=== PATIENT | male | born 1975 | race Caucasian/White ===

== ENCOUNTER 2023-12-27 10:27 | Observation (INO) | payer OTHER ==
--- NOTE | 2023-12-27 10:29 | ERPHSYRPT ---
- History of Present Illness Time Seen by Provider: 12/27/23 10:29 Source: patient, family Exam Limitations: clinical condition (Lethargic) Physician History: This is an obese 48-year-old white male patient who is brought in by private vehicle by the patient's mother who provided some additional, independent history. Patient was brought in because of concern of the possibility of a stroke. Patient's mother stated that her son was last normal prior to 1 AM this morning. At around 7 AM she heard some noise in his room but did not proceed to investigate or evaluate her son. Just prior to arrival, the patient's mother was concerned because he was having trouble communicating as well as standing and walking on his own. The patient arrives to the emergency department with similar symptoms. Patient was sent directly to the CT scanning suite where a stat CT scan of the head was performed. Patient was brought back to room to the emergency department where he is able to follow commands. He shook his head no when asked if he consumed alcohol last evening and late this morning and he stated no. When asked if he took some illicit drugs he nodded yes. He also nodded yes when he was asked whether or not he uses methamphetamines and narcotics. He is able to move all his extremities and follow commands. He is lethargic but arousable Severity: moderate Associated Symptoms: weakness (Lethargic) Allergies/Adverse Reactions: Penicillins Allergy (Unknown, Verified 12/27/23 11:15) codeine Allergy (Verified 12/27/23 11:15) Hx Tetanus, Diphtheria Vaccination/Date Given: Yes Hx Influenza Vaccination/Date Given: No Hx Pneumococcal Vaccination/Date Given: No Travel Risk - International Travel Have you traveled outside of the country in past 3 weeks: No - Emerging Infectious Disease Are you exhibiting symptoms associated with any current EIDs: No - Review of Systems Constitutional: Lethargy (But rousable), Weakness Eyes: No Symptoms Ears, Nose, & Throat: No Symptoms Respiratory: No Symptoms Cardiac: No Symptoms Abdominal/Gastrointestinal: No Symptoms Genitourinary Symptoms: No Symptoms Musculoskeletal: No Symptoms Neurological: Lethargy, No Other (No focal neurologic abnormalities) Psychological: Drug Abuse Endocrine: No Symptoms Hematologic/Lymphatic: No Symptoms Immunological/Allergic: No Symptoms All Other Systems: Reviewed and Negative - Past Medical History Pertinent Past Medical History: No - Past Surgical History Past Surgical History: No - Social History Smoking Status: Current every day smoker How long have you smoked: 10 Exposure to second hand smoke: Yes Drug Use: none Patient Lives Alone: No - Nursing Vital Signs Nursing Vital Signs: Initial Vital Signs Pulse Rate 71 12/27/23 10:54 Respiratory Rate 24 12/27/23 10:54 O2 Sat by Pulse Oximetry 97 12/27/23 10:54 Pain Scale Pain Intensity 0 - Physical Exam General Appearance: lethargy, obese Eye Exam: other (Pupils are symmetric but seem pinpoint to my examination) Ears, Nose, Throat Exam: dry mucous membranes Neck Exam: normal inspection, non-tender, supple, full range of motion Respiratory Exam: normal breath sounds, lungs clear, No chest tenderness, No respiratory distress Cardiovascular Exam: regular rate/rhythm, normal heart sounds, normal peripheral pulses Gastrointestinal/Abdomen Exam: soft, normal bowel sounds, No tenderness Rectal Exam: not done Back Exam: normal inspection, normal range of motion, No CVA tenderness, No vertebral tenderness Extremity Exam: normal inspection, normal range of motion, pelvis stable Neurologic Exam: confusion, intoxicated appearance, motor weakness (Generalized and symmetric) Skin Exam: normal color, warm, dry Lymphatic Exam: No adenopathy SpO2 Interpretation: normal O2 Delivery: Room Air - Course Nursing assessment & vital signs reviewed: Yes EKG Interpreted by Me: RATE (71), Sinus Rhythm, NORMAL AXIS, NORMAL INTERVALS, NORMAL QRS, NORMAL ST-T, Other (No acute ischemia on today's twelve-lead EKG.) Ordered Tests: Active Orders 24 hr Category Date Time Status Fire Control Mechanic STAT Care 12/27/23 10:54 Active EKG-ER Only STAT Care 12/27/23 10:53 Active IV Insertion STAT Care 12/27/23 10:53 Active NPO (ED) STAT Care 12/27/23 10:53 Active Pulse Oximetry (ED) STAT Care 12/27/23 10:53 Active Telemetry q4h Care 12/27/23 12:00 Active Tele-Health Consult ROUTINE Cons 12/27/23 16:[address] ANGIOGRAPHY NECK [CT] Stat Exams 12/27/23 17:16 Ordered CTA HEAD W AND/OR WO CONTRAST [CT] Stat Exams 12/27/23 17:16 Ordered HEAD WITHOUT CONTRAST [CT] Stat Exams 12/27/23 10:32 Completed ACETAMINOPHEN Stat Lab 12/27/23 10:55 Completed CBC W DIFF Stat Lab 12/27/23 10:55 Completed CMP Stat Lab 12/27/23 10:55 Completed ETHYL ALCOHOL Stat Lab 12/27/23 10:55 Completed POCT GLUCOSE Stat Lab 12/27/23 11:06 Completed TROPONIN Q4H Lab 12/27/23 18:00 Ordered TROPONIN Q4H Lab 12/27/23 22:00 Ordered UA W/RFX UR CULTURE Stat Lab 12/27/23 10:57 Completed Urine Triage Profile Stat Lab 12/27/23 10:57 Completed Medication Summary Generic Name Dose Route Start Last Admin Trade Name Freq PRN Reason Stop Dose Admin Sodium Chloride 1,000 mls @ 50 mls/hr 12/27/23 12:45 12/27/23 12:33 Sodium Chloride 0.9% 1000 Ml IV 01/26/24 12:44 50 mls/hr .Q20H IRAIS Administration Discontinued Medications Generic Name Dose Route Start Last Admin Trade Name Freq PRN Reason Stop Dose Admin Aspirin 324 mg 12/27/23 17:46 Aspirin 81 Mg Tab.Chew PO 12/27/23 17:47 STAT ONE Hydralazine HCl 5 mg 12/27/23 16:25 Hydralazine Hcl 20 Mg/Ml Vial IV 12/27/23 16:26 STAT ONE Sodium Chloride 1,000 mls @ 999 mls/hr 12/27/23 10:53 12/27/23 12:38 Sodium Chloride 0.9% 1000 Ml IV 12/27/23 11:53 Infused .Q1H1M STA Infusion Sodium Chloride Confirm 12/27/23 11:30 Sodium Chloride 0.9% 1000 Ml Administered 12/27/23 11:31 Dose 1,000 mls @ ud .ROUTE .STK-MED ONE Potassium Chloride 20 meq in 100 mls @ 50 mls/hr 12/27/23 11:59 12/27/23 12:30 Potassium Chloride 20 Meq In Water 100ml IV 12/27/23 13:58 50 mls/hr STAT ONE Administration Potassium Chloride Confirm 12/27/23 12:29 Potassium Chloride 20 Meq In Water 100ml Administered 12/27/23 12:30 Dose 100 mls @ ud IV .STK-MED ONE Ondansetron HCl 4 mg 12/27/23 10:55 12/27/23 11:31 Ondansetron Hcl 4 Mg/2 Ml Vial IV 12/27/23 10:56 4 mg STAT ONE Administration Ondansetron HCl Confirm 12/27/23 11:30 Ondansetron Hcl 4 Mg/2 Ml Vial Administered 12/27/23 11:31 Dose 4 mg .ROUTE .STK-MED ONE Lab/Rad Data: Laboratory Result Diagrams 12/27/23 10:55 12/27/23 10:55 Laboratory Results 12/27/23 12/27/23 12/27/23 Range/Units 13:55 11:06 10:57 WBC (4.23-9.07) x10^3/uL RBC (4.63-6.08) x10^6/uL Hgb (13.7-17.5) g/dL Hct (40.1-51.0) % MCV (79.0-92.2) fL MCH (25.7-32.2) pg MCHC (32.3-36.5) g/dL RDW (11.6-14.4) % Plt Count (163-337) x10^3/uL MPV (9.4-12.4) fL Gran % (34.0-67.9) % Immature Gran % (Auto) (0.001-0.429) % Nucleat RBC Rel Count (0.00-0.2) % Eos # (Auto) (0.04-0.54) x10^3/uL Immature Gran # (Auto) (0.001-0.031) x10^3u/L Absolute Lymphs (auto) (1.32-3.57) x10^3/uL Absolute Monos (auto) (0.30-0.82) x10^3/uL Absolute Nucleated RBC (0.00-0.012) x10^3u/L Lymphocytes % (21.8-53.1) % Monocytes % (5.3-12.2) % Eosinophils % (0.8-7.0) % Basophils % (0.2-1.2) % Absolute Granulocytes (1.78-5.38) x10^3/uL Basophils # (0.01-0.08) x10^3/uL Sodium (135-145) mmol/L Potassium (3.5-5.1) mmol/L Chloride (98-107) mmol/L Carbon Dioxide (22-30) mmol/L Anion Gap (5-15) MEQ/L BUN (9-20) mg/dL Creatinine (0.66-1.25) mg/dL Estimated GFR ML/MIN Glucose (74-106) mg/dL POC Glucometer 190 H (74 to 106) mg/dL Calcium (8.4-10.2) mg/dL Total Bilirubin (0.2-1.3) mg/dL AST (17-59) U/L ALT (0-50) U/L Alkaline Phosphatase (38-126) U/L Troponin 0.00 (0.00-0.03) ng/mL Serum Total Protein (6.3-8.2) g/dL Albumin (3.5-5.0) g/dL Urine Color (Yellow) Urine Appearance (Clear) Urine pH (4.6-8.0) Ur Specific [place] (1.005-1.030) Urine Protein (Negative) Urine Glucose (UA) (Negative) mg/dL Urine Ketones (Negative) Urine Blood (Negative) Urine Nitrite (Negative) Urine Bilirubin (Negative) Urine Urobilinogen (0.2) mg/dL Ur Leukocyte Esterase (Negative) U Hyaline Cast (Auto) (0-2) /LPF Urine Microscopic RBC (0-5) /HPF Urine Microscopic WBC (0-5) /HPF Ur Epithelial Cells (None Seen) /HPF Urine Bacteria (None Seen) /HPF Urine Culture Reflexed (NO) Urine Opiates Level NEGATIVE (NEGATIVE) Ur Methadone NEGATIVE (NEGATIVE) Acetaminophen (10-30) ug/ml Urine Barbiturates NEGATIVE (NEGATIVE) Ur Phencyclidine (PCP) NEGATIVE (NEGATIVE) Urine Amphetamine POSITIVE A (NEGATIVE) U Benzodiazepine Level NEGATIVE (NEGATIVE) Urine Cocaine NEGATIVE (NEGATIVE) Urine Marijuana (THC) NEGATIVE (NEGATIVE) Ethyl Alcohol (0-10) mg/dL 12/27/23 12/27/23 12/27/23 Range/Units 10:57 10:55 10:55 WBC 8.0 (4.23-9.07) x10^3/uL RBC 4.41 L (4.63-6.08) x10^6/uL Hgb 13.6 L (13.7-17.5) g/dL Hct 39.0 L (40.1-51.0) % MCV 88.4 (79.0-92.2) fL MCH 30.8 (25.7-32.2) pg MCHC 34.9 (32.3-36.5) g/dL RDW 12.4 (11.6-14.4) % Plt Count 284 (163-337) x10^3/uL MPV 10.5 (9.4-12.4) fL Gran % 64.2 (34.0-67.9) % Immature Gran % (Auto) 0.4 (0.001-0.429) % Nucleat RBC Rel Count 0.0 (0.00-0.2) % Eos # (Auto) 0.20 (0.04-0.54) x10^3/uL Immature Gran # (Auto) 0.03 (0.001-0.031) x10^3u/L Absolute Lymphs (auto) 1.90 (1.32-3.57) x10^3/uL Absolute Monos (auto) 0.70 (0.30-0.82) x10^3/uL Absolute Nucleated RBC 0.00 (0.00-0.012) x10^3u/L Lymphocytes % 23.7 (21.8-53.1) % Monocytes % 8.7 (5.3-12.2) % Eosinophils % 2.5 (0.8-7.0) % Basophils % 0.5 (0.2-1.2) % Absolute Granulocytes 5.14 (1.78-5.38) x10^3/uL Basophils # 0.04 (0.01-0.08) x10^3/uL Sodium 138 (135-145) mmol/L Potassium 3.2 L (3.5-5.1) mmol/L Chloride 105 (98-107) mmol/L Carbon Dioxide 23 (22-30) mmol/L Anion Gap 12.3 (5-15) MEQ/L BUN 10 (9-20) mg/dL Creatinine 1.23 (0.66-1.25) mg/dL Estimated GFR 73.3 ML/MIN Glucose 219 H (74-106) mg/dL POC Glucometer (74 to 106) mg/dL Calcium 9.6 (8.4-10.2) mg/dL Total Bilirubin 0.40 (0.2-1.3) mg/dL AST 48 (17-59) U/L ALT 66 H (0-50) U/L Alkaline Phosphatase 107 (38-126) U/L Troponin (0.00-0.03) ng/mL Serum Total Protein 7.4 (6.3-8.2) g/dL Albumin 4.4 (3.5-5.0) g/dL Urine Color Yellow (Yellow) Urine Appearance Clear (Clear) Urine pH 6.0 (4.6-8.0) Ur Specific [place] 1.020 (1.005-1.030) Urine Protein 30 (Negative) Urine Glucose (UA) >=1000 A (Negative) mg/dL Urine Ketones Negative (Negative) Urine Blood Negative (Negative) Urine Nitrite Negative (Negative) Urine Bilirubin Negative (Negative) Urine Urobilinogen 0.2 (0.2) mg/dL Ur Leukocyte Esterase Negative (Negative) U Hyaline Cast (Auto) 0-2 (0-2) /LPF Urine Microscopic RBC 0-2 (0-5) /HPF Urine Microscopic WBC 3-5 (0-5) /HPF Ur Epithelial Cells None Seen (None Seen) /HPF Urine Bacteria None Seen (None Seen) /HPF Urine Culture Reflexed NO (NO) Urine Opiates Level (NEGATIVE) Ur Methadone (NEGATIVE) Acetaminophen < 10 L (10-30) ug/ml Urine Barbiturates (NEGATIVE) Ur Phencyclidine (PCP) (NEGATIVE) Urine Amphetamine (NEGATIVE) U Benzodiazepine Level (NEGATIVE) Urine Cocaine (NEGATIVE) Urine Marijuana (THC) (NEGATIVE) Ethyl Alcohol < 10 (0-10) mg/dL - Progress Progress: improved, re-examined Progress Note: 12/27/23 10:51 My medical decision making and the assignment of moderate to high complexity of this patient's medical issue today is based on review the patient's past medical history, review of the patient's medication list, review patient drug allergy list, history present illness and physical findings on examination. The workup in this patient includes a stat CT scan of the head without contrast, placement of intravenous line, infusion of normal saline solution, infusion of Zofran, CBC, CMP, twelve-lead EKG, magnesium level, urinalysis, urine drug triage, s alicylate level, ethyl alcohol level, acetaminophen level. Differential diagnosis includes but is not limited to altered mental status secondary to alcohol use, narcotic use, illicit drug use acute intracranial abnormality, electrolyte abnormalities, dehydration, urinary tract infection 12/27/23 11:15 CT scan of the head without contrast was interpreted by the radiologist and I reviewed the impression. The impression states normal CT scan of the head without contrast. 12/27/23 12:07 The patient's mother provided additional, independent history. She states that he is working very long hours and getting very little sleep. She did mention he has been very sleepy as of late. She also stated that the patient is on amlodipine and lisinopril for blood pressure. I interpreted the patient's laboratory data results. The patient has a mildly low potassium level. He did test positive for amphetamines. He does have mild hyperglycemia. No other acute or emergent findings on examination. 12/27/23 13:11 Still sleepy but slowly the lethargy is improving. He is moving all his extremities. 12/27/23 14:29 Interpreted the patient's repeat twelve-lead EKG that was performed on 12/27/2023 at 1406. Patient's heart rate is 74 and is normal sinus rhythm. The QTc is 455 and there is no evidence of any acute ischemia. There is normal axis deviation, normal QRS and normal intervals. 12/27/23 17:[address] Anna, the teleneurologist after he evaluated Mr. Delaney. He stated that he felt this is likely due to his methamphetamine abuse. However he recommends us doing a CT scan of the head with contrast as well as CTA of the neck. He also recommends 324 mg of aspirin, which I gave him. In addition, he recommends patient to be placed in observation to undergo MRI and echocardiogr am. I spoke with telehospitalist Dr. Carney. I reviewed the patient history, chief complaint, presenting condition, hospital stay condition, workup results as well as the discussion I had with the teleneurologist. He accepts the patient to be placed in observation. Counseled pt/family regarding: lab results, diagnosis, rad results Medical Desision Making - Discussion of managment Care discussed with:: specialist (TeleneurologistDr. Anna) Reviewed:: Test results, Need for additional workup Agreed on:: place in obs Will see patient: in hospital - Diagnostic Testing Diagnostic test were ordered, analyzed, and reviewed by me: Yes Radiological Interpretation: Reviewed by me, Teleradiologist Report - Risk of complications The pt has a high risk of morbidity or mortality based on: Decision regarding hospitilization or escalation of hosp level of care - Departure Departure Disposition: Observation Clinical Impression: Methamphetamine abuse, TIA (transient ischemic attack) Condition: Stable Critical Care Time: Yes Critical Care Time(excluding separately billable procedures): Critical 30-74 mins (55 minutes) Referrals: DOCTOR,NO FAMILY [NON-STAFF PHY W/O PRIVILEGES] - Follow up/PCP as directed
[2023-12-27 11:03] LABS: Absolute Neutrophil Ct (ANC) 5.14 x10^3/uL (1.78-5.38); BASOPHIL % 0.5 % (0.2-1.2); Basophil (Absolute #) 0.04 x10^3/uL (0.01-0.08); Eosinophil % 2.5 % (0.8-7.0); Hemoglobin 13.6 g/dL (13.7-17.5); IMMATURE GRAN # 0.03 x10^3u/L (0.001-0.031); IMMATURE GRAN % 0.4 % (0.001-0.429); Lymphocytes % 23.7 % (21.8-53.1); Mean Cell Volume 88.4 fL (79.0-92.2); Mean Corpuscular Hemoglobin 30.8 pg (25.7-32.2); Mean Corpuscular Hgb Concent. 34.9 g/dL (32.3-36.5); Mean Platelet Volume 10.5 fL (9.4-12.4); Monocytes % 8.7 % (5.3-12.2); Neutrophil % 64.2 % (34.0-67.9); Platelet Count 284 x10^3/uL (163-337); Red Blood Count 4.41 x10^6/uL (4.63-6.08); Red Cell Distribution Width 12.4 % (11.6-14.4)
--- NOTE | 2023-12-27 11:11 | XRAY ---
Indication: Weakness. Stroke. Multiple contiguous axial images obtained through the head without contrast. Comparison: None Normal appearing brain parenchyma, ventricles, and bony calvarium for patient's age. Visualized paranasal sinuses and mastoid air cells are clear. Impression: Normal CT head without contrast exam.
[2023-12-27 11:19] LABS: ACETAMINOPHEN < 10 ug/ml (10-30); ALBUMIN 4.4 g/dL (3.5-5.0); ALKALINE PHOSPHATASE 107 U/L (38-126); ANION GAP 12.3 MEQ/L (5-15); BLOOD UREA NITROGEN 10 mg/dL (9-20); CHLORIDE 105 mmol/L (98-107); Calcium 9.6 mg/dL (8.4-10.2); Carbon Dioxide 23 mmol/L (22-30); Creatinine 1 1.23 mg/dL (0.66-1.25); EST GLOMERULAR FILTRATION RATE 73.3 ML/MIN; ETHYL ALCOHOL < 10 mg/dL (0-10); Glucose 219 mg/dL (74-106); Potassium 3.2 mmol/L (3.5-5.1); SGOT/AST 48 U/L (17-59); SGPT/ALT 66 U/L (0-50); SODIUM 138 mmol/L (135-145); Total Protein 7.4 g/dL (6.3-8.2)
[2023-12-27] MEDS ORDERED: Sodium Chloride 0.9% 1000 ML 1,000 ML ONE ×2 (11:30→12:32)
[2023-12-27] MEDS ORDERED: Zofran 4 MG/2 ML VIAL ONE (11:30)
[2023-12-27 11:31] LABS: Barbiturate,Urine NEGATIVE (NEGATIVE); Benzodiazepine,Urine NEGATIVE (NEGATIVE); Cocaine,Urine NEGATIVE (NEGATIVE); Methadone,Urine NEGATIVE (NEGATIVE); Opiate,Urine NEGATIVE (NEGATIVE); PCP,Urine NEGATIVE (NEGATIVE); THC,Urine NEGATIVE (NEGATIVE)
[2023-12-27] MEDS: Sodium Chloride 0.9% 1000 ML 1,000 ML IV STA (11:31)
[2023-12-27] MEDS: Zofran 4 MG/2 ML VIAL IV ONE (11:31)
[2023-12-27 11:38] LABS: Appearance Clear (Clear); Bacteria None Seen /HPF (None Seen); Bilirubin Negative (Negative); Blood Negative (Negative); Epithelial Cells None Seen /HPF (None Seen); Glucose, Urine >=1000 mg/dL (Negative); Ketones Negative (Negative); Leukocyte Esterase Negative (Negative); Nitrite Negative (Negative); Protein,Urine Dip 30 (Negative); RBC 0-2 /HPF (0-5); Urobilinogen 0.2 mg/dL (0.2)
[2023-12-27 11:39] LABS: ADD URINE CULTURE? NO (NO)
[2023-12-27 11:40] LABS: Hyaline Casts 0-2 /LPF (0-2)
[2023-12-27 11:58] LABS: Amphetamine,Urine POSITIVE (NEGATIVE)
[2023-12-27] MEDS ORDERED: POTASSIUM CHLORIDE 20 mEq IN WATER 100ML 100 ML IV ONE (12:29)
[2023-12-27] MEDS: POTASSIUM CHLORIDE 20 mEq IN WATER 100ML 20 MEQ/100 ML BAG IV ONE (12:30)
[2023-12-27] MEDS: Sodium Chloride 0.9% 1000 ML 1,000 ML IV SCH ×2 (12:33→23:27)
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
[2023-12-27] MEDS ORDERED: BABY ASPIRIN 81 MG CHEW ONE (18:03)
[2023-12-27] MEDS ORDERED: APRESOLINE 20 MG/ML INJ ONE (18:03)
[2023-12-27] MEDS: BABY ASPIRIN 81 MG CHEW PO ONE (18:04)
[2023-12-27] MEDS: APRESOLINE 20 MG/ML INJ IV ONE (18:05)
[2023-12-27] MEDS ORDERED: Zofran 4 MG/2 ML VIAL IV PRN (20:08)
[2023-12-27] MEDS ORDERED: Docusate Sodium 100 MG PO PRN (21:10)
--- NOTE | 2023-12-27 21:24 | PCM.HP ---
History of Present Illness - Chief Complaint Chief Complaint: TIA Date: 12/27/23 History of Present Illness: is a 48 year old male with a history of DM, HTN, and hyperlipidemia who was brought to the ED by the patient's mother (who provided the ED some additional, independent history) for altered mental status, and specifically the possibility of a stroke. At the time of my assessment, the patient is only arousable for a few seconds to verbal stimulus and sternal rub but then comfortably goes back to sleep. History is obtained from review of the ED chart and communication with the ED physician. Patient's mother stated that her son was last normal prior to 1 AM this morning. At around 7 AM she heard some noise in his room but did not proceed to investigate or evaluate her son. Just prior to arrival, the patient's mother was concerned because he was having trouble communicating as well as standing and walking on his own. The patient arrived to the emergency department with similar symptoms. Patient was sent directly to the CT scanning suite where a stat CT scan of the head was performed, and then the patient was brought back to room to the emergency department where he is able to follow commands. He shook his head no when asked if he consumed alcohol last evening and late this morning and he stated no. When asked if he took some illicit drugs he nodded yes. He also nodded yes when he was asked whether or not he uses methamphetamines and narcotics. He is able to move all his extremities and follow commands. He is lethargic but arousable. Workup in the ED demonstrated a positive toxicology screen for methamphetamines but the CT imaging was unremarkable. Neurology evaluated the patient (note has been voided at this time so I am unable to review) and the recommendation was for aspirin, echocardiogram and MRI. The patient has been admitted. - Review of Systems Constitutional: Lethargy Eyes: No Symptoms Ears, Nose, & Throat: No Symptoms Respiratory: No Symptoms Cardiac: No Symptoms Abdominal/Gastrointestinal: No Symptoms Genitourinary Symptoms: No Symptoms Musculoskeletal: No Symptoms Skin: No Symptoms Neurological: Lethargy Psychological: No Symptoms Endocrine: No Symptoms Hematologic/Lymphatic: No Symptoms Medications & Allergies Home Medications: Home Medication List Hydrocodone/Acetaminophen [[place] 7.5-325 Tablet] 1 each PO Q4H PRN PRN #14 tablet 09/08/14 [Rx] cephALEXin [Keflex] 500 mg PO TID #30 capsule 09/08/14 [Rx] Allergies/Adverse Reactions: Allergies Allergy/AdvReac Type Severity Reaction Status Date / Time Penicillins Allergy Unknown Verified 12/27/23 11:15 codeine Allergy Verified 12/27/23 11:15 - Past Medical History Past Medical History: No Neurological History: No Pertinent History ENT History: No Pertinent History Cardiac History: High Cholesterol, Hypertension Respiratory History: No Pertinent History Endocrine Medical History: Diabetes Type II Musculoskelatal History: No Pertinent History GI Medical History: No Pertinent History History: No Pertinent History Pyscho-Social History: No Pertinent History Male Reproductive Disorders: No Pertinent History - Past Surgical History Past Surgical History: No Neuro Surgical History: No Pertinent History Cardiac History: No Pertinent History Respiratory Surgery: No Pertinent History GI Surgical History: No Pertinent History Genitourinary Surgical Hx: No Pertinent History Musculskeletal Surgical Hx: Other Male Surgical History: No Pertinent History Other Surgical History: Patient poor historian. Mom reports some type of abscess from genitals 5 years ago - Social History Smoking Status: Current every day smoker How long have you smoked: 10 Exposure to second hand smoke: Yes Alcohol: None Drug Use: methamphetamines - Social Determinants of Health Will the patient participate in the screening: Yes Do you worry about a steady place to live?: No Do you have any problems with any of the following?: No known problems In the past 12 months,have you had to go without utilities?: No Have you or anyone in your house had to go without enough: No Transportation Issues: No Has anyone in your support network made you feel unsafe?: No Does the patient want assistance with any of the above?: No Comment: Patient lives with mom - Physical Exam Vital Signs: Vital Signs - 24 hr Temp Pulse Resp BP BP Pulse Ox 12/27/23 20:08 97.9 F 66 23 174/102 94 L 12/27/23 19:01 157/94 98 12/27/23 18:32 165/115 97 12/27/23 18:00 186/104 99 12/27/23 17:31 159/106 99 12/27/23 17:01 157/95 98 12/27/23 16:31 162/95 97 12/27/23 16:25 0 L 166/138 96 12/27/23 16:01 184/129 98 12/27/23 15:31 77 20 166/110 99 12/27/23 15:01 71 26 H 165/94 98 12/27/23 14:31 74 21 157/95 98 12/27/23 14:01 69 20 172/93 99 12/27/23 13:31 79 22 168/98 98 12/27/23 13:01 71 18 161/90 97 12/27/23 12:31 71 20 158/78 98 12/27/23 12:01 71 19 168/88 98 12/27/23 11:31 68 21 171/96 97 12/27/23 11:01 68 20 173/86 97 12/27/23 10:57 97.0 F 72 21 176/86 99 12/27/23 10:56 97 12/27/23 10:55 78 21 176/86 97 12/27/23 10:54 71 24 97 General Appearance: no apparent distress, lethargy Neurologic Exam: alert, 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, disoriented, uncooperative, intoxicated appearance Eye Exam: PERRL/EOMI Ears, Nose, Throat Exam: normal ENT inspection Neck Exam: normal inspection, non-tender, supple, full range of motion Respiratory Exam: normal breath sounds, lungs clear Cardiovascular Exam: regular rate/rhythm, normal heart sounds Gastrointestinal/Abdomen Exam: soft, normal bowel sounds Back Exam: normal range of motion Extremity Exam: normal inspection, normal range of motion Skin Exam: normal color Results - Labs Lab/Micro Results: Lab Results-Last 24 Hours 12/27/23 12/27/23 12/27/23 Range/Units 10:55 10:55 10:57 WBC 8.0 (4.23-9.07) x10^3/uL RBC 4.41 L (4.63-6.08) x10^6/uL Hgb 13.6 L (13.7-17.5) g/dL Hct 39.0 L (40.1-51.0) % MCV 88.4 (79.0-92.2) fL MCH 30.8 (25.7-32.2) pg MCHC 34.9 (32.3-36.5) g/dL RDW 12.4 (11.6-14.4) % Plt Count 284 (163-337) x10^3/uL MPV 10.5 (9.4-12.4) fL Gran % 64.2 (34.0-67.9) % Immature Gran % (Auto) 0.4 (0.001-0.429) % Nucleat RBC Rel Count 0.0 (0.00-0.2) % Eos # (Auto) 0.20 (0.04-0.54) x10^3/uL Immature Gran # (Auto) 0.03 (0.001-0.031) x10^3u/L Absolute Lymphs (auto) 1.90 (1.32-3.57) x10^3/uL Absolute Monos (auto) 0.70 (0.30-0.82) x10^3/uL Absolute Nucleated RBC 0.00 (0.00-0.012) x10^3u/L Lymphocytes % 23.7 (21.8-53.1) % Monocytes % 8.7 (5.3-12.2) % Eosinophils % 2.5 (0.8-7.0) % Basophils % 0.5 (0.2-1.2) % Absolute Granulocytes 5.14 (1.78-5.38) x10^3/uL Basophils # 0.04 (0.01-0.08) x10^3/uL Sodium 138 (135-145) mmol/L Potassium 3.2 L (3.5-5.1) mmol/L Chloride 105 (98-107) mmol/L Carbon Dioxide 23 (22-30) mmol/L Anion Gap 12.3 (5-15) MEQ/L BUN 10 (9-20) mg/dL Creatinine 1.23 (0.66-1.25) mg/dL Estimated GFR 73.3 ML/MIN Glucose 219 H (74-106) mg/dL POC Glucometer (74 to 106) mg/dL Calcium 9.6 (8.4-10.2) mg/dL Total Bilirubin 0.40 (0.2-1.3) mg/dL AST 48 (17-59) U/L ALT 66 H (0-50) U/L Alkaline Phosphatase 107 (38-126) U/L Troponin (0.00-0.03) ng/mL Serum Total Protein 7.4 (6.3-8.2) g/dL Albumin 4.4 (3.5-5.0) g/dL Urine Color Yellow (Yellow) Urine Appearance Clear (Clear) Urine pH 6.0 (4.6-8.0) Ur Specific [place] 1.020 (1.005-1.030) Urine Protein 30 (Negative) Urine Glucose (UA) >=1000 A (Negative) mg/dL Urine Ketones Negative (Negative) Urine Blood Negative (Negative) Urine Nitrite Negative (Negative) Urine Bilirubin Negative (Negative) Urine Urobilinogen 0.2 (0.2) mg/dL Ur Leukocyte Esterase Negative (Negative) U Hyaline Cast (Auto) 0-2 (0-2) /LPF Urine Microscopic RBC 0-2 (0-5) /HPF Urine Microscopic WBC 3-5 (0-5) /HPF Ur Epithelial Cells None Seen (None Seen) /HPF Urine Bacteria None Seen (None Seen) /HPF Urine Culture Reflexed NO (NO) Urine Opiates Level (NEGATIVE) Ur Methadone (NEGATIVE) Acetaminophen < 10 L (10-30) ug/ml Urine Barbiturates (NEGATIVE) Ur Phencyclidine (PCP) (NEGATIVE) Urine Amphetamine (NEGATIVE) U Benzodiazepine Level (NEGATIVE) Urine Cocaine (NEGATIVE) Urine Marijuana (THC) (NEGATIVE) Ethyl Alcohol < 10 (0-10) mg/dL 12/27/23 12/27/23 12/27/23 Range/Units 10:57 11:06 13:55 WBC (4.23-9.07) x10^3/uL RBC (4.63-6.08) x10^6/uL Hgb (13.7-17.5) g/dL Hct (40.1-51.0) % MCV (79.0-92.2) fL MCH (25.7-32.2) pg MCHC (32.3-36.5) g/dL RDW (11.6-14.4) % Plt Count (163-337) x10^3/uL MPV (9.4-12.4) fL Gran % (34.0-67.9) % Immature Gran % (Auto) (0.001-0.429) % Nucleat RBC Rel Count (0.00-0.2) % Eos # (Auto) (0.04-0.54) x10^3/uL Immature Gran # (Auto) (0.001-0.031) x10^3u/L Absolute Lymphs (auto) (1.32-3.57) x10^3/uL Absolute Monos (auto) (0.30-0.82) x10^3/uL Absolute Nucleated RBC (0.00-0.012) x10^3u/L Lymphocytes % (21.8-53.1) % Monocytes % (5.3-12.2) % Eosinophils % (0.8-7.0) % Basophils % (0.2-1.2) % Absolute Granulocytes (1.78-5.38) x10^3/uL Basophils # (0.01-0.08) x10^3/uL Sodium (135-145) mmol/L Potassium (3.5-5.1) mmol/L Chloride (98-107) mmol/L Carbon Dioxide (22-30) mmol/L Anion Gap (5-15) MEQ/L BUN (9-20) mg/dL Creatinine (0.66-1.25) mg/dL Estimated GFR ML/MIN Glucose (74-106) mg/dL POC Glucometer 190 H (74 to 106) mg/dL Calcium (8.4-10.2) mg/dL Total Bilirubin (0.2-1.3) mg/dL AST (17-59) U/L ALT (0-50) U/L Alkaline Phosphatase (38-126) U/L Troponin 0.00 (0.00-0.03) ng/mL Serum Total Protein (6.3-8.2) g/dL Albumin (3.5-5.0) g/dL Urine Color (Yellow) Urine Appearance (Clear) Urine pH (4.6-8.0) Ur Specific [place]pine (1.005-1.030) Urine Protein (Negative) Urine Glucose (UA) (Negative) mg/dL Urine Ketones (Negative) Urine Blood (Negative) Urine Nitrite (Negative) Urine Bilirubin (Negative) Urine Urobilinogen (0.2) mg/dL Ur Leukocyte Esterase (Negative) U Hyaline Cast (Auto) (0-2) /LPF Urine Microscopic RBC (0-5) /HPF Urine Microscopic WBC (0-5) /HPF Ur Epithelial Cells (None Seen) /HPF Urine Bacteria (None Seen) /HPF Urine Culture Reflexed (NO) Urine Opiates Level NEGATIVE (NEGATIVE) Ur Methadone NEGATIVE (NEGATIVE) Acetaminophen (10-30) ug/ml Urine Barbiturates NEGATIVE (NEGATIVE) Ur Phencyclidine (PCP) NEGATIVE (NEGATIVE) Urine Amphetamine POSITIVE A (NEGATIVE) U Benzodiazepine Level NEGATIVE (NEGATIVE) Urine Cocaine NEGATIVE (NEGATIVE) Urine Marijuana (THC) NEGATIVE (NEGATIVE) Ethyl Alcohol (0-10) mg/dL 12/27/23 Range/Units 18:10 WBC (4.23-9.07) x10^3/uL RBC (4.63-6.08) x10^6/uL Hgb (13.7-17.5) g/dL Hct (40.1-51.0) % MCV (79.0-92.2) fL MCH (25.7-32.2) pg MCHC (32.3-36.5) g/dL RDW (11.6-14.4) % Plt Count (163-337) x10^3/uL MPV (9.4-12.4) fL Gran % (34.0-67.9) % Immature Gran % (Auto) (0.001-0.429) % Nucleat RBC Rel Count (0.00-0.2) % Eos # (Auto) (0.04-0.54) x10^3/uL Immature Gran # (Auto) (0.001-0.031) x10^3u/L Absolute Lymphs (auto) (1.32-3.57) x10^3/uL Absolute Monos (auto) (0.30-0.82) x10^3/uL Absolute Nucleated RBC (0.00-0.012) x10^3u/L Lymphocytes % (21.8-53.1) % Monocytes % (5.3-12.2) % Eosinophils % (0.8-7.0) % Basophils % (0.2-1.2) % Absolute Granulocytes (1.78-5.38) x10^3/uL Basophils # (0.01-0.08) x10^3/uL Sodium (135-145) mmol/L Potassium (3.5-5.1) mmol/L Chloride (98-107) mmol/L Carbon Dioxide (22-30) mmol/L Anion Gap (5-15) MEQ/L BUN (9-20) mg/dL Creatinine (0.66-1.25) mg/dL Estimated GFR ML/MIN Glucose (74-106) mg/dL POC Glucometer (74 to 106) mg/dL Calcium (8.4-10.2) mg/dL Total Bilirubin (0.2-1.3) mg/dL AST (17-59) U/L ALT (0-50) U/L Alkaline Phosphatase (38-126) U/L Troponin 0.02 (0.00-0.03) ng/mL Serum Total Protein (6.3-8.2) g/dL Albumin (3.5-5.0) g/dL Urine Color (Yellow) Urine Appearance (Clear) Urine pH (4.6-8.0) Ur Specific [place] (1.005-1.030) Urine Protein (Negative) Urine Glucose (UA) (Negative) mg/dL Urine Ketones (Negative) Urine Blood (Negative) Urine Nitrite (Negative) Urine Bilirubin (Negative) Urine Urobilinogen (0.2) mg/dL Ur Leukocyte Esterase (Negative) U Hyaline Cast (Auto) (0-2) /LPF Urine Microscopic RBC (0-5) /HPF Urine Microscopic WBC (0-5) /HPF Ur Epithelial Cells (None Seen) /HPF Urine Bacteria (None Seen) /HPF Urine Culture Reflexed (NO) Urine Opiates Level (NEGATIVE) Ur Methadone (NEGATIVE) Acetaminophen (10-30) ug/ml Urine Barbiturates (NEGATIVE) Ur Phencyclidine (PCP) (NEGATIVE) Urine Amphetamine (NEGATIVE) U Benzodiazepine Level (NEGATIVE) Urine Cocaine (NEGATIVE) Urine Marijuana (THC) (NEGATIVE) Ethyl Alcohol (0-10) mg/dL - Radiology Impressions Radiology Exams & Impressions: Radiology Procedures Category Date Time Status CT ANGIOGRAPHY NECK [CT] Stat Exams 12/27/23 17:16 Taken CTA HEAD W AND/OR WO CONTRAST [CT] Stat Exams 12/27/23 17:16 Taken ECHO W/2D AND DOPPLER [US] Routine Exams 12/27/23 21:12 Ordered HEAD WITHOUT CONTRAST [CT] Stat Exams 12/27/23 10:32 Completed MRI BRAIN W & W/O CONTRAST [MRI] Routine Exams 12/27/23 21:09 Ordered - Other Procedures and Tests Respiratory Therapy 12/27/23 20:08 EKG REPEAT IN AM 09/25/24 20:56 Smoking Cessation Education ONCE Assessment/Plan (1) TIA (transient ischemic attack) Current Visit: Yes Status: Acute Assessment & Plan: Plan on ASA. BP control. Neurology consult will need to be reviewed with potential reassessment. MRI, ECHO ordered. Code(s): G45.9 - TRANSIENT CEREBRAL ISCHEMIC ATTACK, UNSPECIFIED (2) Acute encephalopathy Current Visit: Yes Status: Acute Assessment & Plan: Possible TIA, but also possible acute intoxication from methamphetamines. Monitor. Workup as above. Code(s): G93.40 - ENCEPHALOPATHY, UNSPECIFIED (3) Essential hypertension Current Visit: Yes Status: Acute Assessment & Plan: Will need to confirm home medication. Labetalol prn for now. Code(s): I10 - ESSENTIAL (PRIMARY) HYPERTENSION (4) Hyperglycemia due to type 2 diabetes mellitus Current Visit: Yes Status: Acute Assessment & Plan: Monitor on ISS. Hold metformin. Code(s): E11.65 - TYPE 2 DIABETES MELLITUS WITH HYPERGLYCEMIA (5) Hyperlipidemia Current Visit: Yes Status: Acute Assessment & Plan: Confirm home statin. Med rec not yet confirmed. Code(s): E78.5 - HYPERLIPIDEMIA, UNSPECIFIED (6) Methamphetamine abuse Current Visit: Yes Status: Acute Assessment & Plan: Encourage cessation. Monitor for any withdrawal symptoms. Code(s): F15.10 - OTHER STIMULANT ABUSE, UNCOMPLICATED Telemedicine Encounter - Telemedicine Encounter Telemedicine Encounter: "The entirety of this encounter was performed via Telemedicine" This visit was performed using real-time audio and video connection between my location and thepatients locationwith the assistance of a surrogateat the patients location. Written or verbal consent was obtained from the patient/guardian to perform this [facility]. Any patient questions regarding the telemedicine interaction were answered.
[2023-12-27] MEDS ORDERED: HUMALOG SQ PRN (21:29)
[2023-12-27] MEDS ORDERED: TRANDATE 20 MG/4 ML SYRINGE IV PRN (21:29)
[2023-12-27] MEDS: HEPARIN 5000 UNITS/0.5 ML (HIGH RISK MED) SQ SCH (23:01)
[2023-12-28 04:37] LABS: Absolute Neutrophil Ct (ANC) 3.26 x10^3/uL (1.78-5.38); BASOPHIL % 0.4 % (0.2-1.2); Basophil (Absolute #) 0.03 x10^3/uL (0.01-0.08); Eosinophil % 3.2 % (0.8-7.0); Eosinophil (Absolute #) 0.22 x10^3/uL (0.04-0.54); Hematocrit 41.2 % (40.1-51.0); IMMATURE GRAN # 0.03 x10^3u/L (0.001-0.031); IMMATURE GRAN % 0.4 % (0.001-0.429); Lymphocytes % 41.5 % (21.8-53.1); Mean Cell Volume 89.2 fL (79.0-92.2); Mean Corpuscular Hemoglobin 30.3 pg (25.7-32.2); Mean Platelet Volume 10.3 fL (9.4-12.4); Monocyte (Absolute #) 0.54 x10^3/uL (0.30-0.82); Monocytes % 7.7 % (5.3-12.2); Neutrophil % 46.8 % (34.0-67.9); Platelet Count 310 x10^3/uL (163-337); Red Blood Count 4.62 x10^6/uL (4.63-6.08); Red Cell Distribution Width 12.9 % (11.6-14.4)
[2023-12-28 04:54] LABS: ANION GAP 11.7 MEQ/L (5-15); Creatinine 1 1.14 mg/dL (0.66-1.25); EST GLOMERULAR FILTRATION RATE 80.3 ML/MIN; Potassium 3.4 mmol/L (3.5-5.1)
[2023-12-28] MEDS ORDERED: MEDICATION INTERVENTION MC SCH (07:30)
--- NOTE | 2023-12-28 08:39 | XRAY ---
Indication: TIA. Normal CT head exam. Conventional contrast enhanced CTA neck performed using 100 cc Isovue 370 contrast. 2-D sagittal and coronal reformatted images obtained. Additional 3-D reformatted images obtained using a separate workstation. Comparison: None Visualized aortic arch is normal in course and caliber with widely patent branch right brachiocephalic, left common carotid, and left subclavian arteries. Normal CTA appearance to the common carotid, carotid bulb, internal carotid, and external carotid arteries bilaterally. Vertebral arteries are bilaterally symmetric and also normal in CTA appearance. Visualized soft tissues demonstrates a few subcentimeter cervical and submandibular lymph nodes bilaterally. No pathologic lymphadenopathy. Parotid and submandibular glands are bilaterally symmetric. Thyroid gland enhances homogeneously. Supra and infraglottic airway widely patent. Normal epiglottis. Lung apices clear. Visualized osseous structures intact with minimal/mild C4-C7 degenerative disc space narrowing/endplate spurring. Patient is edentulous. Impression: Normal CTA neck with contrast exam.
--- NOTE | 2023-12-28 08:43 | XRAY ---
Indication: TIA. Normal CT head exam. Conventional contrast enhanced CTA head performed using 100 cc Isovue 370 contrast. 2-D sagittal and coronal reformatted images obtained. Additional 3-D reformatted images obtained using a separate workstation. Comparison: None Distal internal carotid arteries are bilaterally symmetric without critical stenosis, obstruction, or arteriosclerotic disease. Normal carotid terminus bilaterally. Incidental anatomic variant for origin right posterior cerebral artery. More distal anterior cerebral and middle cerebral arteries are normal in CTA appearance bilaterally. Posterior circulation demonstrates normal CTA appearance to the basilar, left/right posterior cerebral, and left/right superior cerebellar arteries bilaterally. Venous sinuses/drainage are unremarkable. Brain parenchyma is negative for abnormal enhancing intra-or extra-axial mass. Impression: Normal CTA head with contrast exam.
[2023-12-28] MEDS: Klor Con PO ONE (09:16)
[2023-12-28] MEDS: Ecotrin 325 MG PO SCH (09:16)
[2023-12-28] MEDS: NORVASC 5 MG PO SCH (09:16)
[2023-12-28] MEDS: LYRICA 75 MG CAP PO SCH (09:16)
[2023-12-28] MEDS: Zestril 20 MG PO SCH (09:16)
[2023-12-28] MEDS: LOPID PO SCH (09:17)
[2023-12-28] MEDS ORDERED: NON-FORMULARY ITEM (Naltrexone Hcl [Naltrexone Hcl] 50 MG Tablet) PO SCH (10:00)
--- NOTE | 2023-12-28 11:58 | PCM.NOTE ---
Date and Time: 12/28/23 1151 Subjective Assessment: is a 48 year old male with a history of DM, HTN, and hyperlipidemia. He was brought to the ED on 12/27/23 by the patient's mother (who provided the ED some additional, independent history) for altered mental status, and specifically the possibility of a stroke. At the time of my admission, the pat mando was only arousable for a few seconds to verbal stimulus and sternal rub but then comfortably went back to sleep. History was obtained from review of the ED chart and communication with the ED physician. Patient's mother stated that her son was last normal prior to 1 AM this morning. At around 7 AM she heard some noise in his room but did not proceed to investigate or evaluate her son. Just prior to arrival, the patient's mother was concerned because he was having trouble communicating as well as standing and walking on his own. The patient arrived to the emergency department with similar symptoms. Patient was sent directly to the CT scanning suite where a stat CT scan of the head was performed, and then the patient was brought back to room to the emergency department where he is able to follow commands. He shook his head no when asked if he consumed alcohol last evening and late this morning and he stated no. When asked if he took some illicit drugs he nodded yes. He also nodded yes when he was asked whether or not he uses methamphetamines and narcotics. He is able to move all his extremities and follow commands. He is lethargic but arousable. Workup in the ED demonstrated a positive toxicology screen for methamphetamines but the CT imaging was unremarkable. Neurology evaluated the patient (note has been voided at this time so I am unable to review) and the recommendation was for aspirin, echocardiogram and MRI. The patient was then admitted. MRI nd Echo pending today. Asked pt if he would like OP treatment program for meth use and he refused explaining he can stop. He is sleepy today but A&O x3. He denies CP, SOB, Abd. pain, N/V/D. - Review of Systems Constitutional: No Fever, No Chills Eyes: No Symptoms Ears, Nose, & Throat: No Symptoms Respiratory: No Cough, No Short Of Breath Cardiac: No Chest Pain, No Edema, No Syncope Abdominal/Gastrointestinal: No Abdominal Pain, No Nausea, No Vomiting, No Diarrhea Genitourinary Symptoms: No Dysuria Musculoskeletal: No Back Pain, No Neck Pain Skin: No Rash Neurological: No Dizziness, No Focal Weakness, No Sensory Changes Psychological: No Symptoms Endocrine: No Symptoms Hematologic/Lymphatic: No Symptoms Immunological/Allergic: No Symptoms Objective Exam General Appearance: no apparent distress, alert, obese Neurologic Exam: alert, oriented x 3, cooperative, normal mood/affect, nml cerebellar function, sensation nml, No motor deficits Skin Exam: normal color, warm, dry Eye Exam: PERRL, EOMI, eyes nml inspection Ears, Nose, Throat Exam: normal ENT inspection, pharynx normal, moist mucous membranes Neck Exam: normal inspection, non-tender, supple, full range of motion Respiratory Exam: normal breath sounds, lungs clear, No respiratory distress Cardiovascular Exam: regular rate/rhythm, normal heart sounds Gastrointestinal/Abdomen Exam: soft, No tenderness, No mass Extremity Exam: normal inspection, normal range of motion Back Exam: normal inspection, normal range of motion, No CVA tenderness, No vertebral tenderness Male Genitalia Exam: deferred Rectal Exam: deferred Objective Data Vital Signs: Vital Signs - 24 hr Temp Pulse Resp BP BP Pulse Ox 12/28/23 08:00 97.8 F 61 18 173/89 95 12/28/23 04:00 97.9 F 69 23 176/85 94 L 12/28/23 00:00 98.7 F 61 26 H 169/81 94 L 12/27/23 22:24 67 16 95 12/27/23 20:08 97.9 F 66 23 174/102 94 L 12/27/23 19:01 157/94 98 12/27/23 18:32 165/115 97 12/27/23 18:00 186/104 99 12/27/23 17:31 159/106 99 12/27/23 17:01 157/95 98 12/27/23 16:31 162/95 97 12/27/23 16:25 0 L 166/138 96 12/27/23 16:01 184/129 98 12/27/23 15:31 77 20 166/110 99 12/27/23 15:01 71 26 H 165/94 98 12/27/23 14:31 74 21 157/95 98 12/27/23 14:01 69 20 172/93 99 12/27/23 13:31 79 22 168/98 98 12/27/23 13:01 71 18 161/90 97 12/27/23 12:31 71 20 158/78 98 12/27/23 12:01 71 19 168/88 98 Pain Assessment - Last Documented Pain Intensity 0 Intake and Output: Intake & Output 12/25/23 12/26/23 12/27/23 12/28/23 11:59 11:59 11:59 11:59 Intake Total 381 Balance 381 Weight 115.6 kg 114.5 kg Lab Results: Lab Results-Last 24 Hours 12/27/23 12/27/23 12/27/23 Range/Units 10:57 13:55 18:10 WBC (4.23-9.07) x10^3/uL RBC (4.63-6.08) x10^6/uL Hgb (13.7-17.5) g/dL Hct (40.1-51.0) % MCV (79.0-92.2) fL MCH (25.7-32.2) pg MCHC (32.3-36.5) g/dL RDW (11.6-14.4) % Plt Count (163-337) x10^3/uL MPV (9.4-12.4) fL Gran % (34.0-67.9) % Immature Gran % (Auto) (0.001-0.429) % Nucleat RBC Rel Count (0.00-0.2) % Eos # (Auto) (0.04-0.54) x10^3/uL Immature Gran # (Auto) (0.001-0.031) x10^3u/L Absolute Lymphs (auto) (1.32-3.57) x10^3/uL Absolute Monos (auto) (0.30-0.82) x10^3/uL Absolute Nucleated RBC (0.00-0.012) x10^3u/L Lymphocytes % (21.8-53.1) % Monocytes % (5.3-12.2) % Eosinophils % (0.8-7.0) % Basophils % (0.2-1.2) % Absolute Granulocytes (1.78-5.38) x10^3/uL Basophils # (0.01-0.08) x10^3/uL Sodium (135-145) mmol/L Potassium (3.5-5.1) mmol/L Chloride (98-107) mmol/L Carbon Dioxide (22-30) mmol/L Anion Gap (5-15) MEQ/L BUN (9-20) mg/dL Creatinine (0.66-1.25) mg/dL Estimated GFR ML/MIN Glucose (74-106) mg/dL POC Glucometer (74 to 106) mg/dL Calcium (8.4-10.2) mg/dL Troponin 0.00 0.02 (0.00-0.03) ng/mL Triglycerides (30-150) mg/dL Cholesterol (50-200) mg/dL LDL Cholesterol (30-100) mg/dL HDL Cholesterol (40-60) mg/dL Heart Disease Risk Ratio Urine Opiates Level NEGATIVE (NEGATIVE) Ur Methadone NEGATIVE (NEGATIVE) Urine Barbiturates NEGATIVE (NEGATIVE) Ur Phencyclidine (PCP) NEGATIVE (NEGATIVE) Urine Amphetamine POSITIVE A (NEGATIVE) U Benzodiazepine Level NEGATIVE (NEGATIVE) Urine Cocaine NEGATIVE (NEGATIVE) Urine Marijuana (THC) NEGATIVE (NEGATIVE) 12/27/23 12/27/23 12/28/23 Range/Units 22:05 23:09 04:33 WBC 7.0 (4.23-9.07) x10^3/uL RBC 4.62 L (4.63-6.08) x10^6/uL Hgb 14.0 (13.7-17.5) g/dL Hct 41.2 (40.1-51.0) % MCV 89.2 (79.0-92.2) fL MCH 30.3 (25.7-32.2) pg MCHC 34.0 (32.3-36.5) g/dL RDW 12.9 (11.6-14.4) % Plt Count 310 (163-337) x10^3/uL MPV 10.3 (9.4-12.4) fL Gran % 46.8 (34.0-67.9) % Immature Gran % (Auto) 0.4 (0.001-0.429) % Nucleat RBC Rel Count 0.0 (0.00-0.2) % Eos # (Auto) 0.22 (0.04-0.54) x10^3/uL Immature Gran # (Auto) 0.03 (0.001-0.031) x10^3u/L Absolute Lymphs (auto) 2.90 (1.32-3.57) x10^3/uL Absolute Monos (auto) 0.54 (0.30-0.82) x10^3/uL Absolute Nucleated RBC 0.00 (0.00-0.012) x10^3u/L Lymphocytes % 41.5 (21.8-53.1) % Monocytes % 7.7 (5.3-12.2) % Eosinophils % 3.2 (0.8-7.0) % Basophils % 0.4 (0.2-1.2) % Absolute Granulocytes 3.26 (1.78-5.38) x10^3/uL Basophils # 0.03 (0.01-0.08) x10^3/uL Sodium (135-145) mmol/L Potassium (3.5-5.1) mmol/L Chloride (98-107) mmol/L Carbon Dioxide (22-30) mmol/L Anion Gap (5-15) MEQ/L BUN (9-20) mg/dL Creatinine (0.66-1.25) mg/dL Estimated GFR ML/MIN Glucose (74-106) mg/dL POC Glucometer 128 H (74 to 106) mg/dL Calcium (8.4-10.2) mg/dL Troponin 0.02 (0.00-0.03) ng/mL Triglycerides (30-150) mg/dL Cholesterol (50-200) mg/dL LDL Cholesterol (30-100) mg/dL HDL Cholesterol (40-60) mg/dL Heart Disease Risk Ratio Urine Opiates Level (NEGATIVE) Ur Methadone (NEGATIVE) Urine Barbiturates (NEGATIVE) Ur Phencyclidine (PCP) (NEGATIVE) Urine Amphetamine (NEGATIVE) U Benzodiazepine Level (NEGATIVE) Urine Cocaine (NEGATIVE) Urine Marijuana (THC) (NEGATIVE) 12/28/23 12/28/23 12/28/23 Range/Units 04:33 04:33 11:46 WBC (4.23-9.07) x10^3/uL RBC (4.63-6.08) x10^6/uL Hgb (13.7-17.5) g/dL Hct (40.1-51.0) % MCV (79.0-92.2) fL MCH (25.7-32.2) pg MCHC (32.3-36.5) g/dL RDW (11.6-14.4) % Plt Count (163-337) x10^3/uL MPV (9.4-12.4) fL Gran % (34.0-67.9) % Immature Gran % (Auto) (0.001-0.429) % Nucleat RBC Rel Count (0.00-0.2) % Eos # (Auto) (0.04-0.54) x10^3/uL Immature Gran # (Auto) (0.001-0.031) x10^3u/L Absolute Lymphs (auto) (1.32-3.57) x10^3/uL Absolute Monos (auto) (0.30-0.82) x10^3/uL Absolute Nucleated RBC (0.00-0.012) x10^3u/L Lymphocytes % (21.8-53.1) % Monocytes % (5.3-12.2) % Eosinophils % (0.8-7.0) % Basophils % (0.2-1.2) % Absolute Granulocytes (1.78-5.38) x10^3/uL Basophils # (0.01-0.08) x10^3/uL Sodium 140 (135-145) mmol/L Potassium 3.4 L (3.5-5.1) mmol/L Chloride 108 H (98-107) mmol/L Carbon Dioxide 23 (22-30) mmol/L Anion Gap 11.7 (5-15) MEQ/L BUN 10 (9-20) mg/dL Creatinine 1.14 (0.66-1.25) mg/dL Estimated GFR 80.3 ML/MIN Glucose 135 H (74-106) mg/dL POC Glucometer 131 H (74 to 106) mg/dL Calcium 9.0 (8.4-10.2) mg/dL Troponin (0.00-0.03) ng/mL Triglycerides 439 H (30-150) mg/dL Cholesterol 197 (50-200) mg/dL LDL Cholesterol 107 H (30-100) mg/dL HDL Cholesterol 29 L (40-60) mg/dL Heart Disease Risk Ratio 7.0 Urine Opiates Level (NEGATIVE) Ur Methadone (NEGATIVE) Urine Barbiturates (NEGATIVE) Ur Phencyclidine (PCP) (NEGATIVE) Urine Amphetamine (NEGATIVE) U Benzodiazepine Level (NEGATIVE) Urine Cocaine (NEGATIVE) Urine Marijuana (THC) (NEGATIVE) Radiology Exams: Radiology Procedures Category Date Time Status CT ANGIOGRAPHY NECK [CT] Stat Exams 12/27/23 17:16 Completed CTA HEAD W AND/OR WO CONTRAST [CT] Stat Exams 12/27/23 17:16 Completed ECHO W/2D AND DOPPLER [US] Routine Exams 12/28/23 21:12 Taken HEAD WITHOUT CONTRAST [CT] Stat Exams 12/27/23 10:32 Completed MRI BRAIN W & W/O CONTRAST [MRI] Routine Exams 12/28/23 09:22 Ordered Assessment/Plan (1) TIA (transient ischemic attack) Current Visit: Yes Status: Acute Assessment & Plan: - Plan on ASA. - EKG, Tele - BP control Op - Neurology consult will need to be reviewed with potential reassessment. - MRI, ECHO - pending - Head CTA: Impression: Normal CTA head with contrast exam - CT angiography: Impression: Normal CTA head with contrast exam - Head CT: Impression: Normal CT head without contrast exam. - Lipid panel reviewed- continue statin - PT/OT/ST - Tele - Allow for permissive HTN - treat if > 220/120 - neuro checks Code(s): G45.9 - TRANSIENT CEREBRAL ISCHEMIC ATTACK, UNSPECIFIED (2) Acute encephalopathy Current Visit: Yes Status: Acute Assessment & Plan: - Possible TIA, but also possible acute intoxication from methamphetamines. Monitor. Workup as above. 12/27 - A&O x3 today Code(s): G93.40 - ENCEPHALOPATHY, UNSPECIFIED (3) Essential hypertension Current Visit: Yes Status: Acute Assessment & Plan: - Will need to confirm home medication. Labetalol prn for now. - Allow for permissive HTN first 48-72 hrs Code(s): I10 - ESSENTIAL (PRIMARY) HYPERTENSION (4) Hyperglycemia due to type 2 diabetes mellitus Current Visit: Yes Status: Chronic Assessment & Plan: -Monitor on ISS. Hold metformin. - A1C pending Code(s): E11.65 - TYPE 2 DIABETES MELLITUS WITH HYPERGLYCEMIA (5) Hyperlipidemia Current Visit: Yes Status: Acute Assessment & Plan: - continue statin - lipid panel reviewed Code(s): E78.5 - HYPERLIPIDEMIA, UNSPECIFIED (6) Methamphetamine abuse Current Visit: Yes Status: Acute Assessment & Plan: - advised cessation - refuses treatment OP Code(s): F15.10 - OTHER STIMULANT ABUSE, UNCOMPLICATED (7) Obesity (BMI 30-39.9) Current Visit: Yes Status: Chronic Assessment & Plan: - advised ADA diet and exercise control VTE: Heaprin Next of KIN: Mother D/C plan: tomorrow Code status: Full Code(s): E66.9 - OBESITY, UNSPECIFIED
--- NOTE | 2023-12-28 14:53 | XRAY ---
Indication: Altered mental status. Sagittal, coronal, and axial MRI brain performed using pre and post T1, T2, FLAIR, and ADC sequences as ordered. 20 cc Dotarem contrast used. Ventriculosulcal pattern appears symmetric. Right basal ganglia demonstrates 4.1 x 1.1 cm focus of restricted signal favoring acute ischemia. No acute intracranial hemorrhage, abnormal extra axial fluid collection, or mass effect. Following gadolinium, there is no abnormal enhancing intra or extra-axial mass. Fourth ventricle is midline without hydrocephalus. 7/8 cranial nerve complex bilaterally symmetric. Normal flow void signal within the major intracerebral circulation. Normal appearing craniocervical junction and sella turcica. Paranasal sinuses are clear. Impression: 1. Acute ischemia right basal ganglia as detailed. No acute hemorrhage or mass effect. 2. Negative contrast exam.
[2023-12-28] MEDS: TYLENOL 325 MG PO PRN (15:08)
[2023-12-28] MEDS: PATIENT OWN MEDICATION PO SCH (16:09)
[2023-12-28] MEDS ORDERED: ZOCOR 20MG PO SCH (22:00)
[2023-12-28] MEDS: ZOCOR 20MG PO SCH (22:03)
[2023-12-29 05:06] LABS: Hematocrit 41.8 % (40.1-51.0); Hemoglobin 14.1 g/dL (13.7-17.5); Mean Cell Volume 90.5 fL (79.0-92.2); Mean Corpuscular Hemoglobin 30.5 pg (25.7-32.2); Mean Corpuscular Hgb Concent. 33.7 g/dL (32.3-36.5); Mean Platelet Volume 10.4 fL (9.4-12.4); Platelet Count 304 x10^3/uL (163-337); Red Blood Count 4.62 x10^6/uL (4.63-6.08); Red Cell Distribution Width 12.8 % (11.6-14.4)
[2023-12-29 05:15] LABS: ALBUMIN 3.9 g/dL (3.5-5.0); ANION GAP 8.4 MEQ/L (5-15); BILIRUBIN,TOTAL 0.5 mg/dL (0.2-1.3); Calcium 8.8 mg/dL (8.4-10.2); Creatinine 1 1.17 mg/dL (0.66-1.25); EST GLOMERULAR FILTRATION RATE 77.9 ML/MIN; Potassium 3.6 mmol/L (3.5-5.1); Total Protein 6.8 g/dL (6.3-8.2)
[2023-12-29] MEDS: APRESOLINE 20 MG/ML INJ IV ONE (07:53)
--- NOTE | 2023-12-29 10:56 | PCM.DS ---
Discharge Summary Date of Admission: 12/27/23 19:57 Date of Discharge: 12/29/23 Admitting Physician: RUBEN WATKINS MD Consults: Consults on Case 12/27/23 16:46 Tele-Health Consult ROUTINE Primary Care Provider: HERNANDEZ FIGUEROA NP Allergies Allergies Penicillins Allergy (Unknown, Verified 12/27/23 11:15) codeine Allergy (Verified 12/27/23 11:15) Hospital Summary - Hospital Course Hospital Course: 12/28/23 is a 48 year old male with a history of DM, HTN, and hyperlipidemia. He was brought to the ED on 12/27/23 by the patient's mother (who provided the ED some additional, independent history) for altered mental status, and specifically the possibility of a stroke. At the time of my admission, the patient was only arousable for a few seconds to verbal stimulus and sternal rub but then comfortably went back to sleep. History was obtained from review of the ED chart and communication with the ED physician. Patient's mother stated that her son was last normal prior to 1 AM this morning. At around 7 AM she heard some noise in his room but did not proceed to investigate or evaluate her son. Just prior to arrival, the patient's mother was concerned because he was having trouble communicating as well as standing and walking on his own. The patient arrived to the emergency department with similar symptoms. Patient was sent directly to the CT scanning suite where a stat CT scan of the head was performed, and then the patient was brought back to room to the emergency department where he is able to follow commands. He shook his head no when asked if he consumed alcohol last evening and late this morning and he stated no. When asked if he took some illicit drugs he nodded yes. He also nodded yes when he was asked whether or not he uses methamphetamines and narcotics. He is able to move all his extremities and follow commands. He is lethargic but arousable. Workup in the ED demonstrated a positive toxicology screen for methamphetamines but the CT imaging was unremarkable. Neurology evaluated the patient (note has been voided at this time so I am unable to review) and the recommendation was for aspirin, echocardiogram and MRI. The patient was then admitted. MRI nd Echo pending today. Asked pt if he would like OP treatment program for meth use and he refused explaining he can stop. He is sleepy today but A&O x3. He denies CP, SOB, Abd. pain, N/V/D. 12/29/23 Pt resting in bed. He is awake and alert today eating breakfast. Discussed findings of MRI yesterday as well as lifestyle changes. He continues to refuse rehab for meth use and states he can stop. Discussed diet and exercise changes in detail. Discussed risk including if changes are not made. Neurology consult pending post MRI as pt may need some med changes. BP meds restarted this morning. No longer need to allow for permissive HTN since its been over 48 hours. Echo EF 60-65%. He has no current deficits. He denies any further concerns at this time. - Vitals & Intake/Output Vital Signs: Vital Signs Temperature 97.7 F 12/29/23 08:00 Pulse Rate 58 L 12/29/23 08:00 Respiratory Rate 16 12/29/23 08:00 Blood Pressure 197/98 12/29/23 08:00 O2 Sat by Pulse Oximetry 97 12/29/23 08:00 Intake & Output: Intake & Output 12/26/23 12/27/23 12/28/23 12/29/23 11:59 11:59 11:59 11:59 Intake Total 381 2155 Balance 381 2155 Weight 115.6 kg 114.5 kg 114.4 kg - Lab Result Diagrams: 12/29/23 04:25 12/29/23 04:25 Lab Results-Last 24 Hrs: Lab Results-Last 24 Hours 12/28/23 12/28/23 12/28/23 Range/Units 04:33 11:46 16:52 WBC (4.23-9.07) x10^3/uL RBC (4.63-6.08) x10^6/uL Hgb (13.7-17.5) g/dL Hct (40.1-51.0) % MCV (79.0-92.2) fL MCH (25.7-32.2) pg MCHC (32.3-36.5) g/dL RDW (11.6-14.4) % Plt Count (163-337) x10^3/uL MPV (9.4-12.4) fL Sodium (135-145) mmol/L Potassium (3.5-5.1) mmol/L Chloride (98-107) mmol/L Carbon Dioxide (22-30) mmol/L Anion Gap (5-15) MEQ/L BUN (9-20) mg/dL Creatinine (0.66-1.25) mg/dL Estimated GFR ML/MIN Glucose (74-106) mg/dL POC Glucometer 131 H 116 H (74 to 106) mg/dL Hemoglobin A1c 7.72 H (4.5-6.0) % Calcium (8.4-10.2) mg/dL Total Bilirubin (0.2-1.3) mg/dL AST (17-59) U/L ALT (0-50) U/L Alkaline Phosphatase (38-126) U/L Serum Total Protein (6.3-8.2) g/dL Albumin (3.5-5.0) g/dL 12/28/23 12/29/23 12/29/23 Range/Units 20:59 04:25 04:25 WBC 7.0 (4.23-9.07) x10^3/uL RBC 4.62 L (4.63-6.08) x10^6/uL Hgb 14.1 (13.7-17.5) g/dL Hct 41.8 (40.1-51.0) % MCV 90.5 (79.0-92.2) fL MCH 30.5 (25.7-32.2) pg MCHC 33.7 (32.3-36.5) g/dL RDW 12.8 (11.6-14.4) % Plt Count 304 (163-337) x10^3/uL MPV 10.4 (9.4-12.4) fL Sodium 139 (135-145) mmol/L Potassium 3.6 (3.5-5.1) mmol/L Chloride 109 H (98-107) mmol/L Carbon Dioxide 25 (22-30) mmol/L Anion Gap 8.4 (5-15) MEQ/L BUN 13 (9-20) mg/dL Creatinine 1.17 (0.66-1.25) mg/dL Estimated GFR 77.9 ML/MIN Glucose 124 H (74-106) mg/dL POC Glucometer 160 H (74 to 106) mg/dL Hemoglobin A1c (4.5-6.0) % Calcium 8.8 (8.4-10.2) mg/dL Total Bilirubin 0.50 (0.2-1.3) mg/dL AST 39 (17-59) U/L ALT 54 H (0-50) U/L Alkaline Phosphatase 94 (38-126) U/L Serum Total Protein 6.8 (6.3-8.2) g/dL Albumin 3.9 (3.5-5.0) g/dL 12/29/23 Range/Units 07:24 WBC (4.23-9.07) x10^3/uL RBC (4.63-6.08) x10^6/uL Hgb (13.7-17.5) g/dL Hct (40.1-51.0) % MCV (79.0-92.2) fL MCH (25.7-32.2) pg MCHC (32.3-36.5) g/dL RDW (11.6-14.4) % Plt Count (163-337) x10^3/uL MPV (9.4-12.4) fL Sodium (135-145) mmol/L Potassium (3.5-5.1) mmol/L Chloride (98-107) mmol/L Carbon Dioxide (22-30) mmol/L Anion Gap (5-15) MEQ/L BUN (9-20) mg/dL Creatinine (0.66-1.25) mg/dL Estimated GFR ML/MIN Glucose (74-106) mg/dL POC Glucometer 133 H (74 to 106) mg/dL Hemoglobin A1c (4.5-6.0) % Calcium (8.4-10.2) mg/dL Total Bilirubin (0.2-1.3) mg/dL AST (17-59) U/L ALT (0-50) U/L Alkaline Phosphatase (38-126) U/L Serum Total Protein (6.3-8.2) g/dL Albumin (3.5-5.0) g/dL Micro Results-Entire Visit: Accuchecks Date 12/29/23 Date 12/28/23 Date 12/28/23 Time 07:37 Time 20:59 - Radiology Exams Ordered Rad Exams-Entire Visit: Radiology Procedures Category Date Time Status CT ANGIOGRAPHY NECK [CT] Stat Exams 12/27/23 17:16 Completed CTA HEAD W AND/OR WO CONTRAST [CT] Stat Exams 12/27/23 17:16 Completed ECHO W/2D AND DOPPLER [US] Routine Exams 12/28/23 21:12 Taken HEAD WITHOUT CONTRAST [CT] Stat Exams 12/27/23 10:32 Completed MRI BRAIN W & W/O CONTRAST [MRI] Routine Exams 12/28/23 09:22 Completed - Procedures and Test Procedures and Tests throughout Hospitalization: Therapy Orders & Screens 12/27/23 20:08 PT Eval & Treat ( Order) ONCE Reason for Eval:: Status post TIA. Balance, transferring Diagnosis: TIA EKG REPEAT IN AM Comment: 12/27/23 20:56 Smoking Cessation Education ONCE Comment: Diagnosis: TIA Smoking Status: Current every day smoker How long have you smoked: 10 Approximately how many cigarettes per day: 1 pack/day Do you dip or chew tobacco: No 12/27/23 21:10 OT Eval and Treat ( Order) ONCE Comment: Physician Instructions: Reason For Exam: Evaluate: Yes Treat: Yes Diagnosis: TIA 12/27/23 21:30 ST Eval & Treat (MD Order) .as ordered Comment: Physician Instructions: Reason For Exam: Evaluate: Yes Treat: Yes Reason for Eval: tia, intoxication. Assess swallow safety Diagnosis: TIA Speech Therapy Nursing Screen [ST Screen per Nursing Assess] ONCE Comment: Protocol Order Physician Instructions: Greater than [address] Admission Screening Reason For Exam: Triggered on Admission Diagnosis: TIA CVA/Dyshpagia/Aphasia: No Cognitive Deficits: No Dehydration/Nutrition Deficit: No Reflux: No Oral-Motor Difficulties: No Pneumonia: No M[facility] Resident: No Total Points: 0 12/27/23 22:24 Respiratory Therapy Consult ONCE Comment: Reason For Exam: Diagnosis: TIA Discharge Exam General Appearance: no apparent distress, alert, obese Neurologic Exam: alert, oriented x 3, cooperative, normal mood/affect, nml cerebellar function, sensation nml, No motor deficits Eye Exam: PERRL, EOMI, eyes nml inspection Ears, Nose, Throat Exam: normal ENT inspection, pharynx normal, moist mucous membranes Neck Exam: normal inspection, non-tender, supple, full range of motion Respiratory Exam: normal breath sounds, lungs clear, No respiratory distress Cardiovascular Exam: regular rate/rhythm, normal heart sounds Gastrointestinal/Abdomen Exam: soft, No tenderness, No mass Male Genitalia Exam: deferred Rectal Exam: deferred Back Exam: normal inspection, normal range of motion, No CVA tenderness, No vertebral tenderness Extremity Exam: normal inspection, normal range of motion Skin Exam: normal color, warm, dry Final Diagnosis/Problem List - Final Discharge Diagnosis/Problem (1) TIA (transient ischemic attack) Current Visit: Yes Status: Acute Code(s): G45.9 - TRANSIENT CEREBRAL ISCHEMIC ATTACK, UNSPECIFIED (2) Acute encephalopathy Current Visit: Yes Status: Resolved Code(s): G93.40 - ENCEPHALOPATHY, UNSPECIFIED (3) Essential hypertension Current Visit: Yes Status: Acute Code(s): I10 - ESSENTIAL (PRIMARY) HYPERTENSION (4) Hyperglycemia due to type 2 diabetes mellitus Current Visit: Yes Status: Chronic Code(s): E11.65 - TYPE 2 DIABETES MELLITUS WITH HYPERGLYCEMIA (5) Hyperlipidemia Current Visit: Yes Status: Acute Code(s): E78.5 - HYPERLIPIDEMIA, UNSPECIFIED (6) Methamphetamine abuse Current Visit: Yes Status: Acute Code(s): F15.10 - OTHER STIMULANT ABUSE, UNCOMPLICATED (7) Obesity (BMI 30-39.9) Current Visit: Yes Status: Chronic Assessment & Plan: (1) TIA (transient ischemic attack) Current Visit: Yes Status: Acute Assessment & Plan: - Plan on ASA. - EKG, Tele - BP control Op - Neurology consult will need to be reviewed with potential reassessment. - MRI, ECHO - pending - Head CTA: Impression: Normal CTA head with contrast exam - CT angiography: Impression: Normal CTA head with contrast exam - Head CT: Impression: Normal CT head without contrast exam. - Lipid panel reviewed- continue statin - PT/OT/ST - Tele - Allow for permissive HTN - treat if > 220/120 - neuro checks 12/27 - MRI Brain Impression: 1. Acute ischemia right basal ganglia as detailed. No acute hemorrhage or mass effect. 2. Negative contrast exam. - re-consulted neurology for f/u meds possibly needed OP 12/28 - neurology consult pending - no deficits - pt awake and alert today - Echo EF 60-65% Code(s): G45.9 - TRANSIENT CEREBRAL ISCHEMIC ATTACK, UNSPECIFIED (2) Acute encephalopathy Current Visit: Yes Status: Acute Assessment & Plan: - Possible TIA, but also possible acute intoxication from methamphetamines. Monitor. Workup as above. 12/27 - A&O x3 today- resolved - eating and drinking well- IV fluids stopped Code(s): G93.40 - ENCEPHALOPATHY, UNSPECIFIED (3) Essential hypertension Current Visit: Yes Status: Acute Assessment & Plan: - Will need to confirm home medication. Labetalol prn for now. - Allow for permissive HTN first 48-72 hrs 12/28 - BP meds restarted- 48 hours up - PRN IV meds - Hydralizine IV stat this AM - If BP improves may d/c today Code(s): I10 - ESSENTIAL (PRIMARY) HYPERTENSION (4) Hyperglycemia due to type 2 diabetes mellitus Current Visit: Yes Status: Chronic Assessment & Plan: -Monitor on ISS. Hold metformin. - A1C 7.72- uncontrolled- will need OP f/u with PCP Code(s): E11.65 - TYPE 2 DIABETES MELLITUS WITH HYPERGLYCEMIA (5) Hyperlipidemia Current Visit: Yes Status: Acute Assessment & Plan: - continue statin - lipid panel reviewed - education provided Code(s): E78.5 - HYPERLIPIDEMIA, UNSPECIFIED (6) Methamphetamine abuse Current Visit: Yes Status: Acute Assessment & Plan: - advised cessation - refuses treatment OP Code(s): F15.10 - OTHER STIMULANT ABUSE, UNCOMPLICATED (7) Obesity (BMI 30-39.9) Current Visit: Yes Status: Chronic Assessment & Plan: - advised ADA diet and exercise control Code(s): E66.9 - OBESITY, UNSPECIFIED - Discharge Discharge Date: 12/29/23 Disposition: Home, Self-Care Condition: Stable Prescriptions: Continue Atorvastatin Calcium [Lipitor 40Mg] 40 mg PO HS Lisinopril 20 mg [Zestril 20 MG] 20 mg PO DAILY Metformin HCl 500 mg [Glucophage 500 MG] 1,000 mg PO BID Naltrexone HCl 50 mg PO DAILY Amlodipine Besylate 5 mg [Norvasc 5 mg] 5 mg PO DAILY Pregabalin [Lyrica 75 mg Cap] 75 mg PO BID Follow up with: HERNANDEZ FIGUEROA LINING SEWER [Primary Care Provider] -
--- NOTE | 2023-12-29 11:49 | PCM.CONS ---
History of Present Illness - Date of Consult Date of Encounter: 12/29/23 Consulting Mining Speculator: KIN SCHRADER MD Requesting Provider: Attending Provider: RUBEN WATKINS MD Primary Care Provider: PCP: HERNANDEZ FIGUEROA NP Consent was: Given for this tele-med encounter - Consult Narrative HPI: Patient is a 48M who denies fevers, chills, nausea, vomiting, diarrhea, syncope, presyncope, dysphagia,odynophagia, orthopnea, paroxysmal nocturnal dyspnea, shortness of breath, chest pain, refluxsymptoms, belly pain, dysuria, hematuria, melena, hematochezia, seizures, paralysis, or other neurological changes. All other systems have been reviewed and are negative. cc:: The requesting physician will be sent a copy of the consult. - Past Medical History Past Medical History: No Neurological History: No Pertinent History ENT History: No Pertinent History Cardiac History: High Cholesterol, Hypertension Respiratory History: No Pertinent History Endocrine Medical History: Diabetes Type II Musculoskelatal History: No Pertinent History GI Medical History: No Pertinent History History: No Pertinent History Pyscho-Social History: No Pertinent History Male Reproductive Disorders: No Pertinent History - Past Surgical History Past Surgical History: No Neuro Surgical History: No Pertinent History Cardiac History: No Pertinent History Respiratory Surgery: No Pertinent History GI Surgical History: No Pertinent History Genitourinary Surgical Hx: No Pertinent History Musculskeletal Surgical Hx: Other Male Surgical History: No Pertinent History Other Surgical History: Patient poor historian. Mom reports some type of abscess from genitals 5 years ago - Social History Smoking Status: Current every day smoker How long have you smoked: 10 Exposure to second hand smoke: Yes Alcohol: None Drug Use: methamphetamines - Social Determinants of Health Will the patient participate in the screening: Yes Do you worry about a steady place to live?: No Do you have any problems with any of the following?: No known problems In the past 12 months,have you had to go without utilities?: No Have you or anyone in your house had to go without enough: No Transportation Issues: No Has anyone in your support network made you feel unsafe?: No Does the patient want assistance with any of the above?: No Comment: Patient lives with mom Medications & Allergies Home Medications: Home Medication List Amlodipine Besylate 5 mg [Norvasc 5 mg] 5 mg PO DAILY 12/27/23 [History Confirmed 12/27/23] Atorvastatin Calcium [Lipitor 40Mg] 40 mg PO HS 12/27/23 [History Confirmed 12/27/23] Lisinopril 20 mg [Zestril 20 MG] 20 mg PO DAILY 12/27/23 [History Confirmed 12/27/23] Metformin HCl 500 mg [Glucophage 500 MG] 1,000 mg PO BID 12/27/23 [History Confirmed 12/27/23] Naltrexone HCl 50 mg PO DAILY 12/27/23 [History Confirmed 12/27/23] Pregabalin [Lyrica 75 mg Cap] 75 mg PO BID 12/27/23 [History Confirmed 12/27/23] Aspirin EC 81 mg [Ecotrin 81 mg] 81 mg PO DAILY 30 Days #30 tablet 4 [Rx] Allergies/Adverse Reactions: Allergies Allergy/AdvReac Type Severity Reaction Status Date / Time Penicillins Allergy Unknown Verified 12/27/23 11:15 codeine Allergy Verified 12/27/23 11:15 Exam - Vitals Vital Signs: Vital Signs - 24 hr Temp Pulse Resp BP Pulse Ox 12/29/23 08:00 97.7 F 58 L 16 197/98 97 12/29/23 04:00 97.5 F 60 20 205/103 91 L 12/29/23 00:00 97.1 F 61 18 173/100 94 L 12/28/23 19:33 97.5 F 64 18 157/87 96 12/28/23 16:00 98.7 F 75 16 162/84 95 12/28/23 11:55 98.6 F 75 18 171/100 96 SpO2: 97 Results Vital Signs: Vital Signs - 24 hr Temp Pulse Resp BP Pulse Ox 12/29/23 08:00 97.7 F 58 L 16 197/98 97 12/29/23 04:00 97.5 F 60 20 205/103 91 L 12/29/23 00:00 97.1 F 61 18 173/100 94 L 12/28/23 19:33 97.5 F 64 18 157/87 96 12/28/23 16:00 98.7 F 75 16 162/84 95 12/28/23 11:55 98.6 F 75 18 171/100 96 Pain Assessment - Last Documented Pain Intensity 6 Pain Scale Used 0-10 Pain Scale Intake and Output: Intake & Output 12/26/23 12/27/23 12/28/23 12/29/23 11:59 11:59 11:59 11:59 Intake Total 381 2155 Balance 381 2155 Weight 115.6 kg 114.5 kg 114.4 kg LAB: I have reviewed the Labs in [facility]. Radiology Exams: Radiology Procedures Category Date Time Status CT ANGIOGRAPHY NECK [CT] Stat Exams 12/27/23 17:16 Completed CTA HEAD W AND/OR WO CONTRAST [CT] Stat Exams 12/27/23 17:16 Completed ECHO W/2D AND DOPPLER [US] Routine Exams 12/28/23 21:12 Taken MRI BRAIN W & W/O CONTRAST [MRI] Routine Exams 12/28/23 09:22 Completed Multi-Disciplinary Progress Notes: Multi-Disciplinary Progress Notes 12/29/23 11:45 Radiology Note by KIN SCHRADER TRANSTHORACIC ECHOCARDIOGRAM 12/28/2023: 1. Normal biventricular wall thickness, chamber size, and systolic function. 2. Estimated left ventricular ejection fraction is 60-65%. 3. Normal diastolic function profile. 4. Mild aortic sclerosis without stenosis. Valves otherwise structurally normal without evidence of a vegetation. 5. No significant valvular regurgitation. 6. Normal PA systolic pressure. 7. Normal right atrial pressure. 8. No pericardial effusion. 9. Impression: No obvious cardiac source of emboli. Kin Schrader MD [facility] Initialized on 12/29/23 11:45 - END OF NOTE 12/28/23 18:12 Occupational Therapy Note by Royer(L#[id number])Marissa OT eval orders received and this OTR attempted this am x 2 however he was too lethargic to tolerate OT evaluation at this time. Will attempt next date if he is still here and having neurological issues. Initialized on 12/28/23 18:12 - END OF NOTE Assessment & Plan - Encounter Encounter: "The entirety of this encounter was performed via Telemedicine using audio and visual "
[2023-12-29] MEDS: Toprol Xl 50 MG PO SCH (15:06)
[2023-12-29] MEDS: hydroDIURIL 25 MG PO SCH (17:35)
--- NOTE | 2023-12-29 17:48 | PCM.NOTE ---
Date and Time: 12/29/231746 Subjective Assessment: 12/28/23 is a 48 year old male with a history of DM, HTN, and hyperlipidemia. He was brought to the ED on 12/27/23 by the patient's mother (who provided the ED some additional, independent history) for altered mental status, and specifically the possibility of a stroke. At the time of my admission, the patient was only arousable for a few seconds to verbal stimulus and sternal rub but then comfortably went back to sleep. History was obtained from review of the ED chart and communication with the ED physician. Patient's mother stated that her son was last normal prior to 1 AM this morning. At around 7 AM she heard some noise in his room but did not proceed to investigate or evaluate her son. Just prior to arrival, the patient's mother was concerned because he was having trouble communicating as well as standing and walking on his own. The patient arrived to the emergency department with similar symptoms. Patient was sent directly to the CT scanning suite where a stat CT scan of the head was performed, and then the patient was brought back to room to the emergency department where he is able to follow commands. He shook his head no when asked if he consumed alcohol last evening and late this morning and he stated no. When asked if he took some illicit drugs he nodded yes. He also nodded yes when he was asked whether or not he uses methamphetamines and narcotics. He is able to move all his extremities and follow commands. He is lethargic but arousable. Workup in the ED demonstrated a positive toxicology screen for methamphetamines but the CT imaging was unremarkable. Neurology evaluated the patient (note has been voided at this time so I am unable to review) and the recommendation was for aspirin, echocardiogram and MRI. The patient was then admitted. MRI nd Echo pending today. Asked pt if he would like OP treatment program for meth use and he refused explaining he can stop. He is sleepy today but A&O x3. He denies CP, SOB, Abd. pain, N/V/D. 12/29/23 Pt resting in bed. He is awake and alert today eating breakfast. Discussed findings of MRI yesterday as well as lifestyle changes. He continues to refuse rehab for meth use and states he can stop. Discussed diet and exercise changes in detail. Discussed risk including if changes are not made. Neurology consult pending post MRI as pt may need some med changes. BP meds restarted this morning. No longer need to allow for permissive HTN since its been over 48 hours. Echo EF 60-65%. He has no current deficits. He denies any further concerns at this time. - Review of Systems Constitutional: No Fever, No Chills Eyes: No Symptoms Ears, Nose, & Throat: No Symptoms Respiratory: No Cough, No Short Of Breath Cardiac: No Chest Pain, No Edema, No Syncope Abdominal/Gastrointestinal: No Abdominal Pain, No Nausea, No Vomiting, No Diarrhea Genitourinary Symptoms: No Dysuria Musculoskeletal: No Back Pain, No Neck Pain Skin: No Rash Neurological: No Dizziness, No Focal Weakness, No Sensory Changes Psychological: No Symptoms Endocrine: No Symptoms Hematologic/Lymphatic: No Symptoms Immunological/Allergic: No Symptoms Objective Exam General Appearance: no apparent distress, alert Neurologic Exam: alert, oriented x 3, cooperative, normal mood/affect, nml cerebellar function, sensation nml, No motor deficits Skin Exam: normal color, warm, dry Eye Exam: PERRL, EOMI, eyes nml inspection Ears, Nose, Throat Exam: normal ENT inspection, pharynx normal, moist mucous membranes Neck Exam: normal inspection, non-tender, supple, full range of motion Respiratory Exam: normal breath sounds, lungs clear, No respiratory distress Cardiovascular Exam: regular rate/rhythm, normal heart sounds Gastrointestinal/Abdomen Exam: soft, No tenderness, No mass Extremity Exam: normal inspection, normal range of motion Back Exam: normal inspection, normal range of motion, No CVA tenderness, No vertebral tenderness Male Genitalia Exam: deferred Rectal Exam: deferred Objective Data Vital Signs: Vital Signs - 24 hr Temp Pulse Resp BP Pulse Ox 12/29/23 16:00 97.2 F 64 17 180/100 95 12/29/23 12:00 97.7 F 75 11 L 189/100 97 12/29/23 08:00 97.7 F 58 L 16 197/98 97 12/29/23 04:00 97.5 F 60 20 205/103 91 L 12/29/23 00:00 97.1 F 61 18 173/100 94 L 12/28/23 19:33 97.5 F 64 18 157/87 96 Pain Assessment - Last Documented Pain Intensity 6 Pain Scale Used 0-10 Pain Scale Intake and Output: Intake & Output 12/27/23 12/28/23 12/29/23 12/30/23 11:59 11:59 11:59 11:59 Intake Total 381 2159 240 Balance 381 2155 240 Weight 115.6 kg 114.5 kg 114.4 kg Lab Results: Lab Results-Last 24 Hours 12/28/23 12/28/23 12/29/23 Range/Units 04:33 20:59 04:25 WBC 7.0 (4.23-9.07) x10^3/uL RBC 4.62 L (4.63-6.08) x10^6/uL Hgb 14.1 (13.7-17.5) g/dL Hct 41.8 (40.1-51.0) % MCV 90.5 (79.0-92.2) fL MCH 30.5 (25.7-32.2) pg MCHC 33.7 (32.3-36.5) g/dL RDW 12.8 (11.6-14.4) % Plt Count 304 (163-337) x10^3/uL MPV 10.4 (9.4-12.4) fL Sodium (135-145) mmol/L Potassium (3.5-5.1) mmol/L Chloride (98-107) mmol/L Carbon Dioxide (22-30) mmol/L Anion Gap (5-15) MEQ/L BUN (9-20) mg/dL Creatinine (0.66-1.25) mg/dL Estimated GFR ML/MIN Glucose (74-106) mg/dL POC Glucometer 160 H (74 to 106) mg/dL Hemoglobin A1c 7.72 H (4.5-6.0) % Calcium (8.4-10.2) mg/dL Total Bilirubin (0.2-1.3) mg/dL AST (17-59) U/L ALT (0-50) U/L Alkaline Phosphatase (38-126) U/L Serum Total Protein (6.3-8.2) g/dL Albumin (3.5-5.0) g/dL 12/29/23 12/29/23 12/29/23 Range/Units 04:25 07:24 11:55 WBC (4.23-9.07) x10^3/uL RBC (4.63-6.08) x10^6/uL Hgb (13.7-17.5) g/dL Hct (40.1-51.0) % MCV (79.0-92.2) fL MCH (25.7-32.2) pg MCHC (32.3-36.5) g/dL RDW (11.6-14.4) % Plt Count (163-337) x10^3/uL MPV (9.4-12.4) fL Sodium 139 (135-145) mmol/L Potassium 3.6 (3.5-5.1) mmol/L Chloride 109 H (98-107) mmol/L Carbon Dioxide 25 (22-30) mmol/L Anion Gap 8.4 (5-15) MEQ/L BUN 13 (9-20) mg/dL Creatinine 1.17 (0.66-1.25) mg/dL Estimated GFR 77.9 ML/MIN Glucose 124 H (74-106) mg/dL POC Glucometer 133 H 129 H (74 to 106) mg/dL Hemoglobin A1c (4.5-6.0) % Calcium 8.8 (8.4-10.2) mg/dL Total Bilirubin 0.50 (0.2-1.3) mg/dL AST 39 (17-59) U/L ALT 54 H (0-50) U/L Alkaline Phosphatase 94 (38-126) U/L Serum Total Protein 6.8 (6.3-8.2) g/dL Albumin 3.9 (3.5-5.0) g/dL 12/29/23 Range/Units 16:40 WBC (4.23-9.07) x10^3/uL RBC (4.63-6.08) x10^6/uL Hgb (13.7-17.5) g/dL Hct (40.1-51.0) % MCV (79.0-92.2) fL MCH (25.7-32.2) pg MCHC (32.3-36.5) g/dL RDW (11.6-14.4) % Plt Count (163-337) x10^3/uL MPV (9.4-12.4) fL Sodium (135-145) mmol/L Potassium (3.5-5.1) mmol/L Chloride (98-107) mmol/L Carbon Dioxide (22-30) mmol/L Anion Gap (5-15) MEQ/L BUN (9-20) mg/dL Creatinine (0.66-1.25) mg/dL Estimated GFR ML/MIN Glucose (74-106) mg/dL POC Glucometer 116 H (74 to 106) mg/dL Hemoglobin A1c (4.5-6.0) % Calcium (8.4-10.2) mg/dL Total Bilirubin (0.2-1.3) mg/dL AST (17-59) U/L ALT (0-50) U/L Alkaline Phosphatase (38-126) U/L Serum Total Protein (6.3-8.2) g/dL Albumin (3.5-5.0) g/dL Radiology Exams: Radiology Procedures Category Date Time Status CT ANGIOGRAPHY NECK [CT] Stat Exams 12/27/23 17:16 Completed CTA HEAD W AND/OR WO CONTRAST [CT] Stat Exams 12/27/23 17:16 Completed ECHO W/2D AND DOPPLER [US] Routine Exams 12/28/23 21:12 Taken MRI BRAIN W & W/O CONTRAST [MRI] Routine Exams 12/28/23 09:22 Completed Multi-Disciplinary Progress Notes: Multi-Disciplinary Progress Notes 12/29/23 11:58 Case Management Note by Melanie Rivera S/W PATIENT- HE CONTINUES TO DENY ANY NEW NEEDS AT TIME OF DC. HE WAS GIVEN PAMPHLETS ON REHAB FACILITIES IN THE AREA FOR RESOURCE IF HE BECOMES INTERESTED. HE PLANS TO RETURN HOME TO HIS F AT TIME OF DC Initialized on 12/29/23 11:58 - END OF NOTE 12/29/23 11:45 Radiology Note by KIN SCHRADER TRANSTHORACIC ECHOCARDIOGRAM 12/28/2023: 1. Normal biventricular wall thickness, chamber size, and systolic function. 2. Estimated left ventricular ejection fraction is 60-65%. 3. Normal diastolic function profile. 4. Mild aortic sclerosis without stenosis. Valves otherwise structurally normal without evidence of a vegetation. 5. No significant valvular regurgitation. 6. Normal PA systolic pressure. 7. Normal right atrial pressure. 8. No pericardial effusion. 9. Impression: No obvious cardiac source of emboli. Kin Schrader MD [facility] Initialized on 12/29/23 11:45 - END OF NOTE 12/28/23 18:12 Occupational Therapy Note by Royer(L#[id number])Marissa OT eval orders received and this OTR attempted this am x 2 however he was too lethargic to tolerate OT evaluation at this time. Will attempt next date if he is still here and having neurological issues. Initialized on 12/28/23 18:12 - END OF NOTE Assessment/Plan (1) TIA (transient ischemic attack) Current Visit: Yes Status: Acute Code(s): G45.9 - TRANSIENT CEREBRAL ISCHEMIC ATTACK, UNSPECIFIED (2) Acute encephalopathy Current Visit: Yes Status: Resolved Code(s): G93.40 - ENCEPHALOPATHY, UNSPECIFIED (3) Essential hypertension Current Visit: Yes Status: Acute Code(s): I10 - ESSENTIAL (PRIMARY) HYPERTENSION (4) Hyperglycemia due to type 2 diabetes mellitus Current Visit: Yes Status: Chronic Code(s): E11.65 - TYPE 2 DIABETES MELLITUS WITH HYPERGLYCEMIA (5) Hyperlipidemia Current Visit: Yes Status: Acute Code(s): E78.5 - HYPERLIPIDEMIA, UNSPE CIFIED (6) Methamphetamine abuse Current Visit: Yes Status: Acute Code(s): F15.10 - OTHER STIMULANT ABUSE, UNCOMPLICATED (7) Obesity (BMI 30-39.9) Current Visit: Yes Status: Chronic Assessment & Plan: (1) TIA (transient ischemic attack) Current Visit: Yes Status: Acute Assessment & Plan: - Plan on ASA. - EKG, Tele - BP control Op - Neurology consult will need to be reviewed with potential reassessment. - MRI, ECHO - pending - Head CTA: Impression: Normal CTA head with contrast exam - CT angiography: Impression: Normal CTA head with contrast exam - Head CT: Impression: Normal CT head without contrast exam. - Lipid panel reviewed- continue statin - PT/OT/ST - Tele - Allow for permissive HTN - treat if > 220/120 - neuro checks 12/27 - MRI Brain Impression: 1. Acute ischemia right basal ganglia as detailed. No acute hemorrhage or mass effect. 2. Negative contrast exam. - re-consulted neurology for f/u meds possibly needed OP 12/28 - neurology consult pending - no deficits - pt awake and alert today - Echo EF 60-65% Code(s): G45.9 - TRANSIENT CEREBRAL ISCHEMIC ATTACK, UNSPECIFIED (2) Acute encephalopathy Current Visit: Yes Status: Acute Assessment & Plan: - Possible TIA, but also possible acute intoxication from methamphetamines. Monitor. Workup as above. 12/27 - A&O x3 today- resolved - eating and drinking well- IV fluids stopped Code(s): G93.40 - ENCEPHALOPATHY, UNSPECIFIED (3) Essential hypertension Current Visit: Yes Status: Acute Assessment & Plan: - Will need to confirm home medication. Labetalol prn for now. - Allow for permissive HTN first 48-72 hrs 12/28 - BP meds restarted- 48 hours up - PRN IV meds - Hydralizine IV stat this AM - added metoprolol and HCTZ Code(s): I10 - ESSENTIAL (PRIMARY) HYPERTENSION (4) Hyperglycemia due to type 2 diabetes mellitus Current Visit: Yes Status: Chronic Assessment & Plan: -Monitor on ISS. Hold metformin. - A1C 7.72- uncontrolled- will need OP f/u with PCP Code(s): E11.65 - TYPE 2 DIABETES MELLITUS WITH HYPERGLYCEMIA (5) Hyperlipidemia Current Visit: Yes Status: Acute Assessment & Plan: - continue statin - lipid panel reviewed - education provided Code(s): E78.5 - HYPERLIPIDEMIA, UNSPECIFIED (6) Methamphetamine abuse Current Visit: Yes Status: Acute Assessment & Plan: - advised cessation - refuses treatment OP Code(s): F15.10 - OTHER STIMULANT ABUSE, UNCOMPLICATED (7) Obesity (BMI 30-39.9) Current Visit: Yes Status: Chronic Assessment & Plan: - advised ADA diet and exercise control Code(s): E66.9 - OBESITY, UNSPECIFIED Code(s): E66.9 - OBESITY, UNSPECIFIED
[2023-12-30 05:58] LABS: Hematocrit 44.7 % (40.1-51.0); Hemoglobin 15.1 g/dL (13.7-17.5); Mean Cell Volume 89.2 fL (79.0-92.2); Mean Corpuscular Hemoglobin 30.1 pg (25.7-32.2); Mean Corpuscular Hgb Concent. 33.8 g/dL (32.3-36.5); Mean Platelet Volume 10.4 fL (9.4-12.4); Platelet Count 345 x10^3/uL (163-337); Red Blood Count 5.01 x10^6/uL (4.63-6.08); Red Cell Distribution Width 12.8 % (11.6-14.4); White Blood Count 9.1 x10^3/uL (4.23-9.07)
[2023-12-30 06:12] LABS: ALBUMIN 4.4 g/dL (3.5-5.0); BILIRUBIN,TOTAL 0.6 mg/dL (0.2-1.3); Calcium 9.5 mg/dL (8.4-10.2); Creatinine 1 1.34 mg/dL (0.66-1.25); EST GLOMERULAR FILTRATION RATE 66.2 ML/MIN; Potassium 3.6 mmol/L (3.5-5.1); Total Protein 7.6 g/dL (6.3-8.2)
[2023-12-30 06:42] VITALS: RESP 18; TEMP 97.9; O2SAT 94
[2023-12-30] MEDS: PLAVIX Tablet PO SCH (09:40)
[2023-12-30] MEDS: ECOTRIN 81 MG PO SCH (09:40)
[2023-12-30] MEDS: NORVASC 5 MG PO SCH (09:42)
[2023-12-30] MEDS: Apresoline 25 MG TABLET PO SCH (09:44)
[2023-12-30 10:46] VITALS: BP 144/76; PULSE 49
--- NOTE | 2023-12-30 10:59 | PCM.DS ---
Discharge Summary Date of Admission: 12/27/23 19:57 Date of Discharge: 12/30/23 Admitting Physician: RUBEN WATKINS MD Consults: Consults on Case 12/27/23 16:46 Tele-Health Consult ROUTINE Primary Care Provider: HERNANDEZ FIGUEROA NP Allergies Allergies Penicillins Allergy (Unknown, Verified 12/27/23 11:15) codeine Allergy (Verified 12/27/23 11:15) Hospital Summary - Hospital Course Hospital Course: 12/28/23 is a 48 year old male with a history of DM, HTN, and hyperlipidemia. He was brought to the ED on 12/27/23 by the patient's mother (who provided the ED some additional, independent history) for altered mental status, and specifically the possibility of a stroke. At the time of my admission, the patient was only arousable for a few seconds to verbal stimulus and sternal rub but then comfortably went back to sleep. History was obtained from review of the ED chart and communication with the ED physician. Patient's mother stated that her son was last normal prior to 1 AM this morning. At around 7 AM she heard some noise in his room but did not proceed to investigate or evaluate her son. Just prior to arrival, the patient's mother was concerned because he was having trouble communicating as well as standing and walking on his own. The patient arrived to the emergency department with similar symptoms. Patient was sent directly to the CT scanning suite where a stat CT scan of the head was performed, and then the patient [facility] he is able to follow commands. He shook his head no when asked if he consumed alcohol last evening and late this morning and he stated no. When asked if he took some illicit drugs he nodded yes. He also nodded yes when he was asked whether or not he uses methamphetamines and narcotics. He is able to move all his extremities and follow commands. He is lethargic but arousable. Workup in the ED demonstrated a positive toxicology screen for methamphetamines but the CT imaging was unremarkable. Neurology evaluated the patient (note has been voided at this time so I am unable to review) and the recommendation was for aspirin, echocardiogram and MRI. The patient was then admitted. MRI nd Echo pending today. Asked pt if he would like OP treatment program for meth use and he refused explaining he can stop. He is sleepy today but A&O x3. He denies CP, SOB, Abd. pain, N/V/D. 12/29/23 Pt resting in bed. He is awake and alert today eating breakfast. Discussed findings of MRI yesterday as well as lifestyle changes. He continues to refuse rehab for meth use and states he can stop. Discussed diet and exercise changes in detail. Discussed risk including if changes are not made. Neurology consult pending post MRI as pt may need some med changes. BP meds restarted this morning. No longer need to allow for permissive HTN since its been over 48 hours. Echo EF 60-65%. He has no current deficits. He denies any further concerns at this time. 12/30/23 Pt resting in bed. Bp better controlled today with change of medications. Per neurology, pt is to d/c with ASA and Plavix. Again educated on cessation of Meth use. he is wanting to d/c today. He has no c/o and no deficits. - Vitals & Intake/Output Vital Signs: Vital Signs Temperature 97.9 F 12/30/23 06:42 Pulse Rate 49 L 12/30/23 10:45 Respiratory Rate 18 12/30/23 06:42 Blood Pressure 144/76 12/30/23 10:45 O2 Sat by Pulse Oximetry 94 L 12/30/23 06:42 Intake & Output: Intake & Output 12/27/23 12/28/23 12/29/23 12/30/23 11:59 11:59 11:59 11:59 Intake Total 381 2155 360 Balance 381 2155 360 Weight 115.6 kg 114.5 kg 114.4 kg 110.2 kg - Lab Result Diagrams: 12/30/23 05:55 12/30/23 05:55 Lab Results-Last 24 Hrs: Lab Results-Last 24 Hours 12/29/23 12/29/23 12/29/23 Range/Units 11:55 16:40 20:52 WBC (4.23-9.07) x10^3/uL RBC (4.63-6.08) x10^6/uL Hgb (13.7-17.5) g/dL Hct (40.1-51.0) % MCV (79.0-92.2) fL MCH (25.7-32.2) pg MCHC (32.3-36.5) g/dL RDW (11.6-14.4) % Plt Count (163-337) x10^3/uL MPV (9.4-12.4) fL Sodium (135-145) mmol/L Potassium (3.5-5.1) mmol/L Chloride (98-107) mmol/L Carbon Dioxide (22-30) mmol/L Anion Gap (5-15) MEQ/L BUN (9-20) mg/dL Creatinine (0.66-1.25) mg/dL Estimated GFR ML/MIN Glucose (74-106) mg/dL POC Glucometer 129 H 116 H 148 H (74 to 106) mg/dL Calcium (8.4-10.2) mg/dL Total Bilirubin (0.2-1.3) mg/dL AST (17-59) U/L ALT (0-50) U/L Alkaline Phosphatase (38-126) U/L Serum Total Protein (6.3-8.2) g/dL Albumin (3.5-5.0) g/dL 12/30/23 12/30/23 12/30/23 Range/Units 05:55 05:55 07:03 WBC 9.1 H (4.23-9.07) x10^3/uL RBC 5.01 (4.63-6.08) x10^6/uL Hgb 15.1 (13.7-17.5) g/dL Hct 44.7 (40.1-51.0) % MCV 89.2 (79.0-92.2) fL MCH 30.1 (25.7-32.2) pg MCHC 33.8 (32.3-36.5) g/dL RDW 12.8 (11.6-14.4) % Plt Count 345 H (163-337) x10^3/uL MPV 10.4 (9.4-12.4) fL Sodium 136 (135-145) mmol/L Potassium 3.6 (3.5-5.1) mmol/L Chloride 102 (98-107) mmol/L Carbon Dioxide 26 (22-30) mmol/L Anion Gap 12.0 (5-15) MEQ/L BUN 17 (9-20) mg/dL Creatinine 1.34 H (0.66-1.25) mg/dL Estimated GFR 66.2 ML/MIN Glucose 120 H (74-106) mg/dL POC Glucometer 127 H (74 to 106) mg/dL Calcium 9.5 (8.4-10.2) mg/dL Total Bilirubin 0.60 (0.2-1.3) mg/dL AST 51 (17-59) U/L ALT 62 H (0-50) U/L Alkaline Phosphatase 95 (38-126) U/L Serum Total Protein 7.6 (6.3-8.2) g/dL Albumin 4.4 (3.5-5.0) g/dL Micro Results-Entire Visit: Accuchecks Date 12/30/23 Date 12/29/23 Date 12/29/23 Date 12/29/23 Time 21:00 Time 17:01 Time 12:09 - Radiology Exams Ordered Rad Exams-Entire Visit: Radiology Procedures Category Date Time Status ECHO W/2D AND DOPPLER [US] Routine Exams 12/28/23 21:12 Taken - Procedures and Test Procedures and Tests throughout Hospitalization: Therapy Orders & Screens 12/27/23 20:08 PT Eval & Treat (MD Order) ONCE Reason for Eval:: Status post TIA. Balance, transferring Diagnosis: TIA EKG REPEAT IN AM Comment: 12/27/23 20:56 Smoking Cessation Education ONCE Comment: Diagnosis: TIA Smoking Status: Current every day smoker How long have you smoked: 10 Approximately how many cigarettes per day: 1 pack/day Do you dip or chew tobacco: No 12/27/23 21:10 OT Eval and Treat (MD Order) ONCE Comment: Physician Instructions: Reason For Exam: Evaluate: Yes Treat: Yes Diagnosis: TIA 12/27/23 21:30 ST Eval & Treat (MD Order) .as ordered Comment: Physician Instructions: Reason For Exam: Evaluate: Yes Treat: Yes Reason for Eval: tia, intoxication. Assess swallow safety Diagnosis: TIA Speech Therapy Nursing Screen [ST Screen per Nursing Assess] ONCE Comment: Protocol Order Physician Instructions: Greater than [address] Admission Screening Reason For Exam: Triggered on Admission Diagnosis: TIA CVA/Dyshpagia/Aphasia: No Cognitive Deficits: No Dehydration/Nutrition Deficit: No Reflux: No Oral-Motor Difficulties: No Pneumonia: No Residential Resident: No Total Points: 0 12/27/23 22:24 Respiratory Therapy Consult ONCE Comment: Reason For Exam: Diagnosis: TIA Discharge Exam General Appearance: no apparent distress, alert Neurologic Exam: alert, oriented x 3, cooperative, normal mood/affect, nml cerebellar function, sensation nml, No motor deficits Eye Exam: PERRL, EOMI, eyes nml inspection Ears, Nose, Throat Exam: normal ENT inspection, pharynx normal, moist mucous membranes Neck Exam: normal inspection, non-tender, supple, full range of motion Respiratory Exam: normal breath sounds, lungs clear, No respiratory distress Cardiovascular Exam: regular rate/rhythm, normal heart sounds Gastrointestinal/Abdomen Exam: soft, No tenderness, No mass Male Genitalia Exam: deferred Rectal Exam: deferred Back Exam: normal inspection, normal range of motion, No CVA tenderness, No vertebral tenderness Extremity Exam: normal inspection, normal range of motion Skin Exam: normal color, warm, dry Final Diagnosis/Problem List - Final Discharge Diagnosis/Problem (1) TIA (transient ischemic attack) Current Visit: Yes Status: Acute Code(s): G45.9 - TRANSIENT CEREBRAL I SCHEMIC ATTACK, UNSPECIFIED (2) Acute encephalopathy Current Visit: Yes Status: Resolved Code(s): G93.40 - ENCEPHALOPATHY, UNSPECIFIED (3) Essential hypertension Current Visit: Yes Status: Acute Code(s): I10 - ESSENTIAL (PRIMARY) HYPERTENSION (4) Hyperglycemia due to type 2 diabetes mellitus Current Visit: Yes Status: Chronic Code(s): E11.65 - TYPE 2 DIABETES MELLITUS WITH HYPERGLYCEMIA (5) Hyperlipidemia Current Visit: Yes Status: Acute Code(s): E78.5 - HYPERLIPIDEMIA, UNSPECIFIED (6) Methamphetamine abuse Current Visit: Yes Status: Acute Code(s): F15.10 - OTHER STIMULANT ABUSE, UNCOMPLICATED (7) Obesity (BMI 30-39.9) Current Visit: Yes Status: Chronic Assessment & Plan: (1) TIA (transient ischemic attack) Current Visit: Yes Status: Acute Assessment & Plan: - Plan on ASA. - EKG, Tele - BP control Op - Neurology consult will need to be reviewed with potential reassessment. - MRI, ECHO - pending - Head CTA: Impression: Normal CTA head with contrast exam - CT angiography: Impression: Normal CTA head with contrast exam - Head CT: Impression: Normal CT head without contrast exam. - Lipid panel reviewed- continue statin - PT/OT/ST - Tele - Allow for permissive HTN - treat if > 220/120 - neuro checks 12/27 - MRI Brain Impression: 1. Acute ischemia right basal ganglia as detailed. No acute hemorrhage or mass effect. 2. Negative contrast exam. - re-consulted neurology for f/u meds possibly needed OP 12/28 - neurology consult pending - no deficits - pt awake and alert today - Echo EF 60-65% 12/29 - per neurology consult yesterday - pt is to d/c with ASA 81 mg daily and plavix 75 mg for 21 days - Plavix started yesterday, already taking ASA started here Code(s): G45.9 - TRANSIENT CEREBRAL ISCHEMIC ATTACK, UNSPECIFIED (2) Acute encephalopathy Current Visit: Yes Status: Acute Assessment & Plan: - Possible TIA, but also possible acute intoxication from methamphetamines. Monitor. Workup as above. 12/27 - A&O x3 today- resolved - eating and drinking well- IV fluids stopped 12/28 - resolved Code(s): G93.40 - ENCEPHALOPATHY, UNSPECIFIED (3) Essential hypertension Current Visit: Yes Status: Acute Assessment & Plan: - Will need to confirm home medication. Labetalol prn for now. - Allow for permissive HTN first 48-72 hrs 12/28 - BP meds restarted- 48 hours up - PRN IV meds - Hydralizine IV stat this AM - added metoprolol and HCTZ 12/29 - Stopped metoprolo as HR dropped last night, Stopped HCTZ d/t JOSE this AM - increased amlodipine and added hydralizine - repeat BP after meds 144/76 Code(s): I10 - ESSENTIAL (PRIMARY) HYPERTENSION (4) Hyperglycemia due to type 2 diabetes mellitus Current Visit: Yes Status: Chronic Assessment & Plan: -Monitor on ISS. Hold metformin. - A1C 7.72- uncontrolled- will need OP f/u with PCP Code(s): E11.65 - TYPE 2 DIABETES MELLITUS WITH HYPERGLYCEMIA (5) Hyperlipidemia Current Visit: Yes Status: Acute Assessment & Plan: - continue statin - lipid panel reviewed - education provided Code(s): E78.5 - HYPERLIPIDEMIA, UNSPECIFIED (6) Methamphetamine abuse Current Visit: Yes Status: Acute Assessment & Plan: - advised cessation - refuses treatment OP Code(s): F15.10 - OTHER STIMULANT ABUSE, UNCOMPLICATED (7) Obesity (BMI 30-39.9) Current Visit: Yes Status: Chronic Assessment & Plan: - advised [place] diet and exercise control Code(s): E66.9 - OBESITY, UNSPECIFIED - Discharge Discharge Date: 12/30/23 Disposition: Home, Self-Care Condition: Stable Prescriptions: New Aspirin EC 81 mg [Ecotrin 81 mg] 81 mg PO DAILY 30 Days #30 tablet HydrALAzine HCL 25 MG TAB [Apresoline 25 MG TABLET] 50 mg PO BID 30 Days #60 tablet Amlodipine Besylate 5 mg [Norvasc 5 mg] 10 mg PO QAM 30 Days #30 tablet Clopidogrel Bisulfate [PLAVIX Tablet] 75 mg PO DAILY 19 Days #19 tablet Continue Atorvastatin Calcium [Lipitor 40Mg] 40 mg PO HS Lisinopril 20 mg [Zestril 20 MG] 20 mg PO DAILY Metformin HCl 500 mg [Glucophage 500 MG] 1,000 mg PO BID Naltrexone HCl 50 mg PO DAILY Pregabalin [Lyrica 75 mg Cap] 75 mg PO BID Discontinued Amlodipine Besylate 5 mg [Norvasc 5 mg] 5 mg PO DAILY Instructions: Controlling your blood pressure through lifestyle, High cholesterol, High triglycerides, Low-fat diet, Stroke, Methamphetamine Follow up with: HERNANDEZ FIGUEROA NP [Primary Care Provider] -
== END 2023-12-30 13:13 | disposition home or self-care (01) ==
LOC: ED 10:27 → MED SURG 19:57
PROVIDERS: ADMIT Internal Medicine; ATTEND Internal Medicine
DX: G45.9 Transient cerebral ischemic attack, unspecified (principal); G93.40 Encephalopathy, unspecified; I10 Essential (primary) hypertension; E11.65 Type 2 diabetes mellitus with hyperglycemia; E78.5 Hyperlipidemia, unspecified; F15.10 Other stimulant abuse, uncomplicated; E66.9 Obesity, unspecified; F17.200 Nicotine dependence, unspecified, uncomplicated; Z79.899 Other long term (current) drug therapy
CPT/HCPCS: 36000; 36415; 70450; 70496; 70498; 70553; 80048; 80053; 80061; 80143; 80307; 81001; 82077; 82947; 83036; 83721; 84484; 85025; 85027; 93005; 93041; 93268; 93306; 94760; 96360; 96365; 96374; 96375; 99285; 99291; J0360; J1644; J2405; J3480; Q3014; A9270-GY; G0378